=== PATIENT | female | born 1955 | race Caucasian/White ===

== ENCOUNTER 2019-04-09 09:52 | Inpatient (IN) | payer OTHER ==
--- NOTE | 2019-04-09 10:51 | PDOC ---
History of Present Illness - General Chief Complaint: SIRS, Suspected/Possible Stated Complaint: PCP SENT Time Seen by Provider: 04/09/19 10:41 History Source: Patient Exam Limitations: No Limitations - History of Present Illness Initial Comments: 04/09/19 10:46 63 yo female pmh scarlet fever and vaginal herpes presents for 1 week body aches, MACIEL, F/C, cough with yellow fl, SOB with talking , worse lying flat, decreased urine output even though drinking water. took husbands lasix 20 pm 102.5 t max Prescribed z pack and prednisone. Took 1 dose medrol pack, no antibiotics taken yet son had similar symptoms 1 week ago, no recent travel tachy, bilateral crackles, 101.9 temp in the ED Past History - Past Medical History Allergies/Adverse Reactions: Allergies Allergy/AdvReac Type Severity Reaction Status Date / Time No Known Allergies Allergy Verified 04/09/19 09:59 COPD: No Other medical history: herpies - Surgical History Appendectomy: Yes - Suicide/Smoking/Psychosocial Hx Smoking History: Former smoker Have you smoked in the past 12 months: No Information on smoking cessation initiated: No Hx Alcohol Use: No Drug/Substance Use Hx: No *Physical Exam - Vital Signs Last Vital Signs Temp Pulse Resp BP Pulse Ox 101.9 F H 125 H 25 H 147/77 97 04/09/19 09:59 04/09/19 09:59 04/09/19 09:59 04/09/19 09:59 04/09/19 09:59 ED Treatment Course - LABORATORY CBC & Chemistry Diagram: 04/09/19 11:00 04/09/19 11:00 *DC/Admit/Observation/Transfer Diagnosis at time of Disposition: Community acquired bacterial pneumonia - Discharge Dispostion Condition at time of disposition: Stable Decision to Admit order: Yes - Referrals Referrals: Jenny Castaneda MD [Primary Care Provider] - - Patient Instructions - Post Discharge Activity
[2019-04-09] MEDS ORDERED: ACETAMINOPHEN 1000 MG/100 ML VIAL (NON FORMULARY) IVPB ONE (11:32)
[2019-04-09 11:35] LABS: HEMATOCRIT 29.7 % (32.4-45.2); HEMOGLOBIN 10.2 GM/dL (10.7-15.3); LYMPH % 3.3 % (8-40); MCH 32.1 pg (25.7-33.7); MCHC 34.5 g/dl (32.0-36.0); MEAN CELL VOLUME 93.1 fl (80-96); MONO % 1.9 % (3.8-10.2); NEUT % 94.8 % (42.8-82.8); RBC 3.19 M/mm3 (3.60-5.2); RDW 12.4 % (11.6-15.6); WHITE BLOOD COUNT 11.8 K/mm3 (4.0-10.0)
[2019-04-09] MEDS ORDERED: SODIUM CHLORIDE 1,000 ML IV STA (11:37)
[2019-04-09 11:48] LABS: PLATELET COUNT 330 K/MM3 (134-434)
[2019-04-09 11:55] LABS: EPI CELLS 3.3 /HPF (0-5/HPF); HYALINE CASTS 4 /lpf (0-8); URINE APPEARANCE CLEAR; URINE BACTERIA 9.5 /hpf (NEGATIVE); URINE BILIRUBIN NEGATIVE (NEGATIVE); URINE COLOR YELLOW; URINE GLUCOSE (UA) NEGATIVE (NEGATIVE); URINE KETONE TRACE (NEGATIVE); URINE LEUK ESTERASE NEGATIVE (NEGATIVE); URINE NITRITE NEGATIVE (NEGATIVE); URINE PROTEIN 2+ (NEGATIVE); URINE RBC 6 /hpf (0-4); URINE WBC 2 /hpf (0-5)
[2019-04-09 11:58] LABS: ALBUMIN 2.7 g/dl (3.4-5.0); BILIRUBIN,TOTAL 0.2 mg/dL (0.2-1); BLOOD UREA NITROGEN 10.2 mg/dL (7-18); CALCIUM 9.5 mg/dL (8.5-10.1); CREATININE 0.6 mg/dL (0.55-1.3); POTASSIUM 3.9 mmol/L (3.5-5.1); TOT PROT 6.2 g/dl (6.4-8.2)
[2019-04-09 12:00] LABS: INR 1.19 (0.83-1.09); PROTHROMBIN TIME (PATIENT) 14.1 SEC (9.7-13.0)
[2019-04-09 12:03] LABS: ACTIVATED PTT 31.5 SECONDS (25.2-36.5)
[2019-04-09 12:34] LABS: N-TERMINAL BNP 1753.2 pg/ml (5-125)
[2019-04-09] MEDS ORDERED: CEFTRIAXONE 1 GM in DEXTROSE 5%-WATER - 100 ML IVPB ONE (12:55)
[2019-04-09] MEDS ORDERED: AZITHROMYCIN IVPB 500 MG in DEXTROSE 5%-WATER - 250 ML IVPB ONE (12:56)
[2019-04-09] MEDS ORDERED: CEFTRIAXONE 1 GM/50 ML BAG ONE (13:08)
[2019-04-09] MEDS ORDERED: AZITHROMYCIN IVPB 500 MG/250 ML BAG IVPB ONE (13:08)
--- NOTE | 2019-04-09 13:10 | PDOC ---
Documentation entered by Jenny Jay SCRIBE, acting as scribe for Patel Rodgers MD. Patel Rodgers MD: This documentation has been prepared by the Misty justice Brenda, SCRIBE, under my direction and personally reviewed by me in its entirety. I confirm that the documentation accurately reflects all work, treatment, procedures, and medical decision making performed by me. Attending Attestation - Resident Resident Name: Shawn Azul - ED Attending Attestation I have performed the following: I have examined & evaluated the patient, The case was reviewed & discussed with the resident, I agree w/resident's findings & plan, Exceptions are as noted - HPI HPI: 04/09/19 12:32 The patient is a 63 year old female, with a significant PMH of Scarlet fever, vagincal herpies and an unknown murmor, who presents to the emergency department with 1 week of body aches,headaches, chest congestion, a productive cough of white phlegm accompanied by chills, SOB and orthopnea. She also endorses experiencing fevers at about 101.5 F and this morning at 102.5 f. The patient reported seeing her PCP on for her symptoms,but was told to wait it off, due to son experiencing similar symptoms, but prescribed her Z- pack. She also reports recent decreased urine production, for which she took husbands lasix, which helped for 1 day. The patient also endorses recent loose stools. The patient denies chest pain and dizziness. Denies nausea, vomiting, and constipation. Denies any urinary symptoms. 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 PCP: Jenny Castaneda - Physicial Exam PE: 04/09/19 12:33 GENERAL: + Mild tachypnea. The patient is awake, alert, and fully oriented, Nontoxic - in no acute distress. HEAD: Normocephalic, atraumatic. EYES: extraocular movements intact, sclera anicteric, conjunctiva clear. ENT: Normal voice, Moist mucous membranes. NECK: Normal range of motion, supple without lymphadenopathy, JVD, or masses. LUNGS: + basilar rales, worse in L base HEART: +Tachycardic. Regular rhythm, normal S1 and S2 without murmur, rub or gallop. ABDOMEN: Soft, nontender, No guarding, no rebound. No masses. EXTREMITIES: Normal range of motion, no edema. neg homans, no calf tenderness NEUROLOGICAL: No facial asymmetry, Normal speech, normal gait. moving all 4 ext spontaneously and symmetrically PSYCH: Normal mood, normal affect. SKIN: Warm, Dry, normal turgor, no rashes or lesions noted. - Medical Decision Making 04/09/19 12:12 63y F no significant pmhx presnts with 1 week of fever/chills, cough, chgest congestion. cough producive of yellowish without hemopytsis. patient notes that she started off with fever, body aches approximate 6 days ago with onset of cough about 5 days ago - patient note poor appetite, malaise, dyspnea on exertion. the patient denies any leg swelling, abdominal pain, vomiting. no recent travel. she has had a few friends that had a mild cough. Patient denies smoking or recreational drug use pmd: dr. castaneda Suspect possible pneumonia we'll obtain blood work, chest x-ray, sepsis or set obtained 04/09/19 13:08 Chest x-ray noted for left basal infiltrate We'll treat the patient with ceftriaxone and azithromycin for CAP will adimt for inpt tx of pna per PSI Port score Heart Score/ECG Review - ECG Impressions Comment:: 04/09/19 13:08 Twelve-lead EKG was performed and reviewed by me. There is normal sinus rhythm with a rate of [address] wave changes suggestive of acute ischemia imp: sinus tachycarda
[2019-04-09 13:42] LABS: ANISOCYTOSIS 0; MACROCYTOSIS 1+; OVALOCYTE 1+; PLATELET ESTIMATE NORMAL
--- NOTE | 2019-04-09 13:54 | HP ---
CHIEF COMPLAINT:cough, SOB PCP:Dr. Castaneda HISTORY OF PRESENT ILLNESS: Patient is a 63 year old female with past medical history of heart murmur and vaginal herpes, presented to the ED due to 1 week history of cough and worsening SOB. Patient reported she experienced nonproductive cough, body malaise, subjective fevers and headache that started 1 week ago. No medications taken, no consult was done. Four days ago, she started experiencing shortness of breath, worsened with exertion, and had poor oral intake. She also started to sleep with head elevated as lying flat makes her cough and dyspneic. Two days ago, she followed up with her PCP, and she was prescribed Azithromycin and Prednisone taper which she started taking yesterday. This morning, patient woke up feeling worse, with temp at 102F, and feeling short of breath. She called her PCP and recommended she come to the ED. Of note, patient also reports decreased urine output for the past 2 days. She reports bloating and incomplete bladder emptying sensation, but denies dysuria or hematuria. She took Lasix 20mg from her , and reported good urine output afterwards, but today, urine output is decreased again. ER course was notable for: (1)CXR: LLL infiltrates. RUL infiltrate vs atelectasis (2)IV Azithromycin and IV Ceftriaxone x1, IV NS x1 (3)WBC 11.8, Na 128, BNP 1753 Recent Travel:denies PAST MEDICAL HISTORY: unknown heart murmur vaginal herpes PAST SURGICAL HISTORY: appendectomy Social History: Smoking:denies Alcohol:1 glass of wine/day Drugs: denies Family History: Mother, aunt - colon cancer Allergies No Known Allergies Allergy (Verified 04/09/19 09:59) HOME MEDICATIONS: REVIEW OF SYSTEMS CONSTITUTIONAL: fever, generalized weakness, malaise, loss of appetite Absent: chills, diaphoresis, weight change HEENT: Absent: rhinorrhea, nasal congestion, throat pain, throat swelling, difficulty swallowing, mouth swelling, ear pain, eye pain, visual changes CARDIOVASCULAR: Absent: chest pain, syncope, palpitations, irregular heart rate, lightheadedness , peripheral edema RESPIRATORY: cough, shortness of breath Absent: dyspnea with exertion, orthopnea, wheezing, stridor, hemoptysis GASTROINTESTINAL: Absent: abdominal pain, abdominal distension, nausea, vomiting, diarrhea, constipation, melena, hematochezia GENITOURINARY: incomplete bladder emptying Absent: dysuria, frequency, urgency, hesitancy, hematuria, flank pain, genital pain MUSCULOSKELETAL: Absent: myalgia, arthralgia, joint swelling, back pain, neck pain SKIN: Absent: rash, itching, pallor HEMATOLOGIC/IMMUNOLOGIC: Absent: easy bleeding, easy bruising, lymphadenopathy, frequent infections ENDOCRINE: Absent: unexplained weight gain, unexplained weight loss, heat intolerance, cold intolerance NEUROLOGIC: Absent: headache, focal weakness or paresthesias, dizziness, unsteady gait, seizure, mental status changes, bladder or bowel incontinence PSYCHIATRIC: Absent: anxiety, depression, suicidal or homicidal ideation, hallucinations. PHYSICAL EXAMINATION Vital Signs - 24 hr 04/09/19 09:59 Temperature 101.9 F H Pulse Rate 125 H Respiratory 25 H Rate Blood Pressure 147/77 O2 Sat by Pulse 97 Oximetry (%) GENERAL: Awake, alert, and fully oriented, in no acute distress. EYES: PERRLa, EOMI, sclera anicteric, conjunctiva clear. EARS, NOSE, THROAT: Dry mucous membranes. NECK: Normal range of motion, supple. LUNGS: + fine crackles on left base HEART: Regular rate and rhythm, normal S1 and S2, +holosystolic murmur RUSB/LUSB ABDOMEN: Soft, nontender, not distended, normoactive bowel sounds. MUSCULOSKELETAL: Normal range of motion at all joints. UPPER EXTREMITIES: 2+ pulses, warm, well-perfused. No peripheral edema. LOWER EXTREMITIES: 2+ pulses, warm, well-perfused. No peripheral edema. NEUROLOGICAL: Cranial nerves II-XII intact. Normal speech. Normal gait. PSYCHIATRIC: Cooperative. Good eye contact. Appropriate mood and affect. SKIN: Warm, dry, normal turgor, no rashes or lesions noted. Laboratory Results - last 24 hr 04/09/19 04/09/19 04/09/19 11:00 11:00 11:00 WBC 11.8 H RBC 3.19 L Hgb 10.2 L Hct 29.7 L MCV 93.1 MCH 32.1 MCHC 34.5 RDW 12.4 Plt Count 330 MPV 8.0 Absolute Neuts (auto) 11.2 H Neutrophils % 94.8 H Lymphocytes % 3.3 L Monocytes % 1.9 L Eosinophils % 0.0 Basophils % 0.0 Nucleated RBC % 0 PT with INR 14.10 H INR 1.19 H PTT (Actin FS) 31.5 Sodium 128 L Potassium 3.9 Chloride 94 L Carbon Dioxide 27 Anion Gap 7 L BUN 10.2 Creatinine 0.6 Est GFR (CKD-EPI)AfAm 114.02 Est GFR (CKD-EPI)NonAf 98.38 Random Glucose 115 H Lactic Acid Calcium 9.5 Total Bilirubin 0.2 AST 40 H ALT 49 Alkaline Phosphatase 112 Troponin I B-Natriuretic Peptide Total Protein 6.2 L Albumin 2.7 L Urine Color Urine Appearance Urine pH Ur Specific [place] Urine Protein Urine Glucose (UA) Urine Ketones Urine Blood Urine Nitrite Urine Bilirubin Urine Urobilinogen Ur Leukocyte Esterase Urine WBC (Auto) Urine RBC (Auto) Urine Casts (Auto) U Epithel Cells (Auto) Urine Bacteria (Auto) 04/09/19 04/09/19 04/09/19 11:00 11:00 11:20 WBC RBC Hgb Hct MCV MCH MCHC RDW Plt Count MPV Absolute Neuts (auto) Neutrophils % Lymphocytes % Monocytes % Eosinophils % Basophils % Nucleated RBC % PT with INR INR PTT (Actin FS) Sodium Potassium Chloride Carbon Dioxide Anion Gap BUN Creatinine Est GFR (CKD-EPI)AfAm Est GFR (CKD-EPI)NonAf Random Glucose Lactic Acid 0.9 Calcium Total Bilirubin AST ALT Alkaline Phosphatase Troponin I < 0.02 B-Natriuretic Peptide 1753.2 H Total Protein Albumin Urine Color Yellow Urine Appearance Clear Urine pH 7.0 Ur Specific [place] 1.021 Urine Protein 2+ H Urine Glucose (UA) Negative Urine Ketones Trace H Urine Blood Negative Urine Nitrite Negative Urine Bilirubin Negative Urine Urobilinogen 1.0 Ur Leukocyte Esterase Negative Urine WBC (Auto) 2 Urine RBC (Auto) 6 Urine Casts (Auto) 4 U Epithel Cells (Auto) 3.3 Urine Bacteria (Auto) 9.5 ASSESSMENT/PLAN: Patient is a 63 year old female with past medical history of heart murmur and vaginal herpes, presented to the ED due to 1 week history of cough and worsening SOB. #Sepsis 2/2 Community Acquired Pneumonia -Leukocytosis, fever, tachycardia -CXR: LLL infiltrate, ?RUL infiltrate -Urine legionella -Continue Iv Ceftriaxone 1000mg daily and IV Azithromycin 500mg daily -IV NS @100cc/hr -Follow up cultures #Hyponatremia -likely 2/2 poor oral intake vs infection -Urine Na, crea, osm -Will replete with IV NS -Monitor Na level #Decreased urine output -Will order bladder scan post void -likely 2/2 poor oral intake #?heart failure -Will order echo -BNP 1700 -clinical picture more consistent with PNA than CHF #FEN -IV NS @100cc/hr -Routine bmp monitoring -Sodium restricted diet #Prophylaxis -Lovenox 40mg sq daily #Disposition -full code -admit to med surg Visit type - Emergency Visit Emergency Visit: Yes ED Registration Date: 04/09/19 Care time: The patient presented to the Emergency Department on the above date and was hospitalized for further evaluation of their emergent condition. - New Patient This patient is new to me today: Yes Date on this admission: 04/09/19 - Critical Care Critical Care patient: No ATTENDING PHYSICIAN STATEMENT I saw and evaluated the patient. I reviewed the resident's note and discussed the case with the resident. I agree with the resident's findings and plan as documented. SUBJECTIVE: OBJECTIVE: ASSESSMENT AND PLAN:
[2019-04-09] MEDS ORDERED: SODIUM CHLORIDE 1,000 ML IV SCH (14:45)
--- NOTE | 2019-04-09 14:50 | PN ---
Teaching Attending Note Name of Resident: Robyn Ramirez ATTENDING PHYSICIAN STATEMENT I saw and evaluated the patient. I reviewed the resident's note and discussed the case with the resident. I agree with the resident's findings and plan as documented. SUBJECTIVE: CC: fever, cough, and SOB. HPI: 63 y/o lady with h/o heart murmur,anemia, and genital herpes who presented with fever, cough, and SOB x 1 week. patient was doing well until she started with malaise, SOB, cough ( occasionally with yellow sputum production). diarrhea developed on second day of sx onset, after taking a natural remedies for constipation and has been having 3-4 water BMs daily. she feels bloated. she reports decreased urine output. Tokk a lsix form her yesterday yesterday with transient increase in her urine. she denies hematuria. she reports increased thirst and slightly increased water intake in past week. poor food intake. denies any heart history but knows of a murmur since childhood. Had previous echos in past and was told "the murmur is minimal". 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 Son was sick with fever last week for few days then it resolved. no other sick contact. she saw her PCp on and was prescribed Zpack and prednisone. she took those yesterday. No change in status though. this am , she felt worse nad presented to ER. send sputum cx In ER, she was given IVF,, CTx and Azithro. blood cx was sent. she feels better now and SOB is slightly better. OBJECTIVE: NAD. HEENT: dry MM, + JVD, no facial droop. erythematous oropharynx, no facial droop , round pupils, reactive to light, unicteric sclera. EOMI CV: RRR, 2/6 Sm at Base, and LLSB, with no radiation to carotids . B/l JVD Lungs: L mid lung and L base crackles. R base crackles Ext: no vivek or erythema, no fungal infection in toe webs. Abd:Soft, Nd,, TTP in epigastric area and RUQ. No rebound tenderness. No hepartosplenomegaly. blader is not percussed or palpated. Cxray image and report reviewed. EKG: sinus tach, no ST or TW changes. QTC 400 ASSESSMENT AND PLAN: 63 y/o lady with h/o heart murmur,anemia, and genital herpes who presented with fever, cough, and SOB x 1 week. she was found ot be septic 1- Sepsis: due to b/l community acquired PNA. R/o legionella with bilateral infiltrates, hyponatremia and tenderness over liver area. Despite JVds, and elevated BNP, patient looks volume depleted. i doubt heart failure. - cont ceftriaxone and Azithro. Qtc 400 - check legionella Urine Ag. - follow urine cx - give IVF carefully and monitor resp status. if signs of volume overload can diurese - check Echo - order sputum cx 2- Hyponatremia: suspect form volume depletion and poor po intake. r/o legionella infection. doubt CHF. No previous labsin system - check urine Na/cr/Osm, and Serum Osm. - IVF NS for now - repeat Na this evening 3- Normocytic anemia: reports being anemic in past, but no specific treatment was provided. No GI or bleed - check iron studies, B12, folate 4- Elevated BNP: with JVd on exam. doubt CHF. - check echo. monitor closely on IVF 5- Reported decreased urine output. probably due to volume depletion.No signs of UTI - check bladder scan. R/o retention - I&O 6- DVT px. lovenox
--- NOTE | 2019-04-09 16:09 | EKG ---
Test Reason : Blood Pressure : / mmHG Vent. Rate : 118 BPM Atrial Rate : 118 BPM P-R Int : 154 ms QRS Dur : 068 ms QT Int : 286 ms P-R-T Axes : 046 037 037 degrees QTc Int : 400 ms SINUS TACHYCARDIA POSSIBLE LEFT ATRIAL ENLARGEMENT BORDERLINE ECG NO PREVIOUS ECGS AVAILABLE Confirmed by PAULA MELGAR, GIUSEPPE ([id number]) on 04/09/2019 4:09:05 PM Referred By: Confirmed By:GIUSEPPE MITCHELL MD
[2019-04-09 16:56] VITALS: BMI 22.4
[2019-04-09 19:50] LABS: BLOOD UREA NITROGEN 10.4 mg/dL (7-18); CALCIUM 9.3 mg/dL (8.5-10.1); CREATININE 0.7 mg/dL (0.55-1.3); POTASSIUM 4.4 mmol/L (3.5-5.1)
[2019-04-10] MEDS ORDERED: ALBUTEROL SO4 2.5/IPRATROPIUM 0.5 INH SOL 3 ML VIAL.NEB. NEB ONE (00:04)
[2019-04-10] MEDS ORDERED: guaiFENesin 200 MG/10 ML 10 ML UNIT-DOSE CUPS PO PRN ×2 (00:05→07:33)
[2019-04-10] MEDS ORDERED: BENZOCAINE/MENTH/CETYLPYRD CL 1 EACH LOZENGE MM PRN ×2 (01:44→07:33)
[2019-04-10] MEDS ORDERED: ACETAMINOPHEN 1000 MG/100 ML VIAL (NON FORMULARY) IVPB ONE ×2 (01:46→13:29)
--- NOTE | 2019-04-10 01:56 | PN ---
Progress Note (short form) - Note Progress Note: Paged by nurse that patient was febrile at 103F. Patient reported coughing which keeps her awake. Patient noted to be tachycardic at 120s. General: awake, alert, cotinuously having nonproductive cough Heart: Tachycardic Lungs: crackles left lung base Repeat BNP and bmp EKG showed sinus tachycardia IVF discontinued Repeat blood culture
[2019-04-10 08:30] LABS: BASO % 0.2 % (0-2.0); EOS % 0.3 % (0-4.5); HEMATOCRIT 29.9 % (32.4-45.2); HEMOGLOBIN 10.2 GM/dL (10.7-15.3); LYMPH % 9.9 % (8-40); MCH 32.3 pg (25.7-33.7); MCHC 34.2 g/dl (32.0-36.0); MEAN CELL VOLUME 94.4 fl (80-96); MEAN PLT VOLUME 7.3 fl (7.5-11.1); MONO % 4.6 % (3.8-10.2); RBC 3.16 M/mm3 (3.60-5.2); RDW 12.3 % (11.6-15.6); WHITE BLOOD COUNT 7.5 K/mm3 (4.0-10.0)
[2019-04-10 08:48] LABS: PLATELET COUNT 329 K/MM3 (134-434)
[2019-04-10 08:56] LABS: ALBUMIN 2.5 g/dl (3.4-5.0); BILIRUBIN,TOTAL 0.2 mg/dL (0.2-1); BLOOD UREA NITROGEN 8.9 mg/dL (7-18); CALCIUM 9.1 mg/dL (8.5-10.1); CREATININE 0.6 mg/dL (0.55-1.3); MAGNESIUM 2.2 mg/dL (1.8-2.4); POTASSIUM 3.7 mmol/L (3.5-5.1); TOT PROT 5.9 g/dl (6.4-8.2)
[2019-04-10] MEDS ORDERED: cefTRIAXone SODIUM 1 GM VIAL ONE (09:49)
[2019-04-10] MEDS ORDERED: DEXTROSE 5%-WATER - 50 ML IVPB ONE (09:49)
[2019-04-10] MEDS: AZITHROMYCIN IVPB 500 MG/250 ML BAG IVPB SCH (09:59)
[2019-04-10] MEDS: ENOXAPARIN NA (PORCINE) 40 MG/0.4 ML DISP.SYRIN SQ SCH (09:59)
[2019-04-10] MEDS ORDERED: CEFTRIAXONE 1 GM in DEXTROSE 5%-WATER - 50 ML IVPB SCH (10:00)
[2019-04-10] MEDS ORDERED: ENOXAPARIN NA (PORCINE) 40 MG/0.4 ML DISP.SYRIN SQ SCH (10:00)
[2019-04-10] MEDS ORDERED: AZITHROMYCIN IVPB 500 MG/250 ML BAG IVPB SCH (10:00)
[2019-04-10] MEDS ORDERED: PT OWN MED DRAWER 7, Y5N ONE (10:42)
--- NOTE | 2019-04-10 11:53 | EKG ---
Test Reason : Blood Pressure : / mmHG Vent. Rate : 102 BPM Atrial Rate : 102 BPM P-R Int : 160 ms QRS Dur : 074 ms QT Int : 308 ms P-R-T Axes : 049 026 053 degrees QTc Int : 401 ms SINUS TACHYCARDIA WITH OCCASIONAL PREMATURE VENTRICULAR COMPLEXES OTHERWISE NORMAL ECG WHEN COMPARED WITH ECG OF 09-APR-2019 10:26, PREMATURE VENTRICULAR COMPLEXES ARE NOW PRESENT Confirmed by PAULA MELGAR, GIUSEPPE ([id number]) on 04/10/2019 11:52:59 AM Referred By: Confirmed By:GIUSEPPE MITCHELL MD
--- NOTE | 2019-04-10 12:43 | PN ---
Progress Note (short form) - Note Progress Note: Subjective: Had fever last night. feels SOB still, cough is bothering her , but did not change from yesterday. No CP . Objective: Vital Signs: Last Vital Signs Temp Pulse Resp BP Pulse Ox 98.8 F 92 H 20 111/71 95 04/10/19 11:15 04/10/19 11:15 04/10/19 11:15 04/10/19 11:15 04/10/19 09:00 Laboratory Results - last 24 hr 04/09/19 04/09/19 04/09/19 11:00 11:20 15:46 WBC RBC Hgb Hct MCV MCH MCHC RDW Plt Count MPV Absolute Neuts (auto) Neutrophils % Neutrophils % (Manual) 87.0 H Band Neutrophils % 5.0 Lymphocytes % Lymphocytes % (Manual) 4.0 L Monocytes % Monocytes % (Manual) 3 L Eosinophils % Eosinophils % (Manual) 0.0 Basophils % Basophils % (Manual) 0.0 Myelocytes % (Man) 0 Promyelocytes % (Man) 0 Blast Cells % (Manual) 0 Nucleated RBC % Metamyelocytes 0 Hypochromia 0 Platelet Estimate Normal Polychromasia 0 Poikilocytosis 0 Anisocytosis 0 Microcytosis 0 Macrocytosis 1+ Ovalocytes 1+ Sodium Potassium Chloride Carbon Dioxide Anion Gap BUN Creatinine Est GFR (CKD-EPI)AfAm Est GFR (CKD-EPI)NonAf Random Glucose Serum Osmolality Lactic Acid 1.2 Calcium Phosphorus Magnesium Total Bilirubin AST ALT Alkaline Phosphatase B-Natriuretic Peptide Total Protein Albumin TSH Urine Osmolality Ur Random Creatinine 37.0 Ur Random Sodium 04/09/19 04/09/19 04/09/19 15:46 16:35 16:35 WBC RBC Hgb Hct MCV MCH MCHC RDW Plt Count MPV Absolute Neuts (auto) Neutrophils % Neutrophils % (Manual) Band Neutrophils % Lymphocytes % Lymphocytes % (Manual) Monocytes % Monocytes % (Manual) Eosinophils % Eosinophils % (Manual) Basophils % Basophils % (Manual) Myelocytes % (Man) Promyelocytes % (Man) Blast Cells % (Manual) Nucleated RBC % Metamyelocytes Hypochromia Platelet Estimate Polychromasia Poikilocytosis Anisocytosis Microcytosis Macrocytosis Ovalocytes Sodium Potassium Chloride Carbon Dioxide Anion Gap BUN Creatinine Est GFR (CKD-EPI)AfAm Est GFR (CKD-EPI)NonAf Random Glucose Serum Osmolality 259 L Lactic Acid Calcium Phosphorus Magnesium Total Bilirubin AST ALT Alkaline Phosphatase B-Natriuretic Peptide Total Protein Albumin TSH Urine Osmolality 209 L Ur Random Creatinine Ur Random Sodium < 18 L 04/09/19 04/10/19 04/10/19 18:32 01:55 07:31 WBC RBC Hgb Hct MCV MCH MCHC RDW Plt Count MPV Absolute Neuts (auto) Neutrophils % Neutrophils % (Manual) Band Neutrophils % Lymphocytes % Lymphocytes % (Manual) Monocytes % Monocytes % (Manual) Eosinophils % Eosinophils % (Manual) Basophils % Basophils % (Manual) Myelocytes % (Man) Promyelocytes % (Man) Blast Cells % (Manual) Nucleated RBC % Metamyelocytes Hypochromia Platelet Estimate Polychromasia Poikilocytosis Anisocytosis Microcytosis Macrocytosis Ovalocytes Sodium 128 L Cancelled 135 L Potassium 4.4 Cancelled 3.7 Chloride 95 L Cancelled 100 Carbon Dioxide 28 Cancelled 29 Anion Gap 5 L Cancelled 6 L BUN 10.4 Cancelled 8.9 Creatinine 0.7 Cancelled 0.6 Est GFR (CKD-EPI)AfAm 108.38 Cancelled 114.02 Est GFR (CKD-EPI)NonAf 93.51 Cancelled 98.38 Random Glucose 129 H Cancelled 103 Serum Osmolality Lactic Acid Calcium 9.3 Cancelled 9.1 Phosphorus 3.0 Magnesium 2.2 Total Bilirubin 0.2 AST 56 H ALT 49 Alkaline Phosphatase 96 B-Natriuretic Peptide Cancelled Total Protein 5.9 L Albumin 2.5 L TSH 0.61 Urine Osmolality Ur Random Creatinine Ur Random Sodium 04/10/19 07:33 WBC 7.5 RBC 3.16 L Hgb 10.2 L Hct 29.9 L MCV 94.4 MCH 32.3 MCHC 34.2 RDW 12.3 Plt Count 329 MPV 7.3 L Absolute Neuts (auto) 6.4 Neutrophils % 85.0 H Neutrophils % (Manual) Band Neutrophils % Lymphocytes % 9.9 D Lymphocytes % (Manual) Monocytes % 4.6 D Monocytes % (Manual) Eosinophils % 0.3 D Eosinophils % (Manual) Basophils % 0.2 D Basophils % (Manual) Myelocytes % (Man) Promyelocytes % (Man) Blast Cells % (Manual) Nucleated RBC % 0 Metamyelocytes Hypochromia Platelet Estimate Polychromasia Poikilocytosis Anisocytosis Microcytosis Macrocytosis Ovalocytes Sodium Potassium Chloride Carbon Dioxide Anion Gap BUN Creatinine Est GFR (CKD-EPI)AfAm Est GFR (CKD-EPI)NonAf Random Glucose Serum Osmolality Lactic Acid Calcium Phosphorus Magnesium Total Bilirubin AST ALT Alkaline Phosphatase B-Natriuretic Peptide Total Protein Albumin TSH Urine Osmolality Ur Random Creatinine Ur Random Sodium Physical Exam: NAD. HEENT: dry MM, No JVD today. CV: RRR, 2/6 SM at Base, and LLSB, with no radiation to carotids. Lungs: L mid lung and L base crackles.No R sided crackles Ext: no edema or erythema. Abd:Soft, Nd,NT. ASSESSMENT AND PLAN: 63 y/o lady with h/o heart murmur,anemia, and genital herpes who presented with fever, cough, and SOB x 1 week. she was found ot be septic 1- Sepsis: due to b/l community acquired PNA. no improvement in status - r/o legionella, U legionela AG pending - repeat Cxray stat - hold fluids for now and decide after reviewing cxray - cont Azithro and ceftriaxone - follow blood cx - follow sputum cx if able to obtain - cont FiO2 - check Echo - pulm consult - d/w Dr. Hassan: check for Pertusis 2- Hyponatremia: corrected with IVF. this indicates volume depletion as etiology not heart failure 3- Normocytic anemia: reports being anemic in past, but no specific treatment was provided. No GI or bleed - check iron studies, B12, folate. 4- Elevated BNP: doubt heart failure as her Na corrected with IVF. lungs with no increased crackles with fluids. JVD that was present yesterday has resolved. - echo pending - thelma for I& O 5- DVT px. lovenox Tx to tele. Visit type - Emergency Visit Emergency Visit: Yes ED Registration Date: 04/09/19 Care time: The patient presented to the Emergency Department on the above date and was hospitalized for further evaluation of their emergent condition. - New Patient This patient is new to me today: No - Critical Care Critical Care patient: No
--- NOTE | 2019-04-10 13:10 | CON.PULM ---
Consult Consult Specialty:: PULMONARY Referred by:: PMD Reason for Consultation:: PNEUMONIA - History of Present Illness Chief Complaint: PNEUMONIA History of Present Illness: 63 WHITE FEMALE NO SIGNIFICANT SMOKING HISTORY PRESENTS TO ED WITH FEVER/CHILLS/ DRY COUGH/SOB FOR ONE WEEK. SHE STATES THE SYMPTOMS BEGAN 7 DAYS AGO AFTER HAVING A MESSAGE AND A STEAM BATH. THAT EVENING SHE HAD BODY ACHES AND FEVER WITH HEADACHE WHICH PROGRESSED OVER TOME . DOCUMENTED FEVERS UP TO 103. PATIENT VISITED HER PMD 4 DAYS AGO AND WAS TOLD SHE HAD A VIRAL ILLNESS. SHE HAD BLOOD DRAWN BUT WAS NOT GIVEN THE RESULTS, NO RADIOGRAPG WAS DONE AT THAT TIME. TWO DAYS AGO SHE CALLED HER PMD WITH CONTINUED SYMPTOMS AND WAS GIVEN A ZPK WHICH SHE TOOK ALL THE PILLS WITHIN A 12 HOUR PERIOD. SHE CONTINUED TO FEEL POORLY AND DECIDED TO COME TO THE ER. PATIENT HAS SPENT A NUMBER OF YEARS IN [place] AND [facility] AND IS PPD POSITIVE. SHE WAS NEVER TOLD OF ACTIVE TBC INFECTION. 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 Cardio/Vascular: No: AFIB, HTN, Hyperlipdemia Pulmonary: No: Cancer, COPD, O2 Dependent, Pulmonary Fibrosis Gastrointestinal: No: Cancer Hepatobiliary: No: Cirrhosis Renal/: No: Renal Failure Reproductive: Yes: Postmenopausal ...: No Heme/Onc: No: Anemia Infectious Disease: Yes: Other (GENITAL HERPES ) Psych: No: Addictions Musculoskeletal: No: Bursitis Rheumatology: No: Fibromyalgia Endocrine: No: Hypothyroidism - Past Surgical History Past Surgical History: Yes: Appendectomy - Alcohol/Substance Use Hx Alcohol Use: No History of Substance Use: reports: None - Smoking History Smoking history: Former smoker Have you smoked in the past 12 months: No If you are a former smoker, when did you quit?: MANY YEARS AGO - Social History ADL: Independent Place of : Other History of Recent Travel: No Home Medications - Allergies Allergies/Adverse Reactions: Allergies Allergy/AdvReac Type Severity Reaction Status Date / Time No Known Allergies Allergy Verified 04/09/19 09:59 Family Disease History - Family Disease History Family Disease History: CA: Grandparent, Father (COLON CANCER) Review of Systems - Review of Systems Constitutional: reports: Fever, Loss of Appetite Eyes: denies: Blurred Vision HENT: denies: Difficult Swallowing Neck: denies: Decreased ROM Cardiovascular: reports: Shortness of Breath. denies: Chest Pain Respiratory: reports: Cough, Exercise Intolerance, SOB, SOB on Exertion. denies : Hemoptysis, Orthopnea Gastrointestinal: reports: Abdominal Pain (MIDEPIGASTRIC PAIN), Other Genitourinary: reports: No Symptoms Breasts: reports: No Symptoms Reported Musculoskeletal: reports: No Symptoms Integumentary: reports: No Symptoms Neurological: reports: No Symptoms Physical Exam Vital Sings: Vital Signs Temperature 98.8 F 04/10/19 11:15 Pulse Rate 92 H 04/10/19 11:15 Respiratory Rate 20 04/10/19 11:15 Blood Pressure 111/71 04/10/19 11:15 O2 Sat by Pulse Oximetry (%) 95 04/10/19 09:00 Constitutional: Yes: Anxious Eyes: Yes: EOM Intact HENT: Yes: Normocephalic Neck: Yes: Trachea Midline Cardiovascular: Yes: Tachycardia, S1, S2 Respiratory: Yes: Cough, Other (EGOPHONY AND BRONCHIAL BREATH SOUNDS LEFT BASE EXTENDING UP 1/3 LUNG FIELD) Gastrointestinal: Yes: Soft, Tenderness, Epigastrium Renal/: Yes: WNL Musculoskeletal: Yes: Muscle Pain Extremities: Yes: WNL Edema: No Integumentary: Yes: WNL Neurological: Yes: WNL Labs: CBC, BMP 04/10/19 07:33 04/10/19 07:31 Imaging - Results Chest X-ray: Report Reviewed, Image Reviewed EKG: Report Reviewed, Image Reviewed Problem List - Problems (1) Community acquired bacterial pneumonia Code(s): J15.9 - UNSPECIFIED BACTERIAL PNEUMONIA Assessment/Plan CABP WITH HYPOXEMIA/TACHYCARDIA/ELEVATED TEMPS RECENT STEAM BATH CONCERNING FOR LEGIONELLA PANCULTURE/BLOOD, URINE URINE ANTIGENS PERTUSSIS SEROLOGY WITH NASAL SWAB PCR IF POSITIVE WILL NEED CT CHEST NO CONTRAST IN AM SUGGEST ID OPINION CONTINUE ANTIBIOTICS AND SUPPLEMENTAL O2 WITH IV FLUID SUPPORT. THANK YOU FOR THIS CONSULT. Sander NEGRETE MD
[2019-04-10] MEDS ORDERED: CODEINE SO4 30 MG TABLET PO ONE (14:00)
[2019-04-10] MEDS: SODIUM CHLORIDE 1,000 ML IV SCH (14:00)
[2019-04-10] MEDS: guaiFENesin/CODEINE 10 ML UNIT-DOSE CUPS PO PRN ×2 (14:26→21:46)
[2019-04-10] MEDS: ALBUTEROL SO4 2.5/IPRATROPIUM 0.5 INH SOL 3 ML VIAL.NEB. NEB PRN ×2 (16:00→20:30)
[2019-04-10] MEDS ORDERED: ACETAMINOPHEN 1000 MG/100 ML VIAL (NON FORMULARY) IVPB PRN (20:55)
[2019-04-11] MEDS: guaiFENesin/CODEINE 10 ML UNIT-DOSE CUPS PO PRN ×2 (04:37→22:58)
[2019-04-11 07:07] LABS: SERUM IRON SATURATION 5 % (15-55); TOTAL IRON BINDING CAPACITY 190 ug/dL (250-450)
[2019-04-11] MEDS: ALBUTEROL SO4 2.5/IPRATROPIUM 0.5 INH SOL 3 ML VIAL.NEB. NEB PRN (07:30)
--- NOTE | 2019-04-11 08:50 | CON.ID ---
Consult Consult Specialty:: infectious diseases Referred by:: Reason for Consultation:: sob,pneumonia - History of Present Illness Chief Complaint: sob,cough,weakness History of Present Illness: 63 year old female with past medical history of heart murmur and vaginal herpes, admitted due to 1 week history of cough and worsening SOB. Patient reported she experienced nonproductive cough, body malaise, subjective fevers and headache that started 1 week ago. No medications taken, Four days ago, she started experiencing shortness of breath, worsened with exertion, and had poor oral intake. She also started to sleep with head elevated as lying flat makes her cough and dyspneic. Two days ago, she followed up with her PCP, and she was told that she probably had viral fever and was not prescribed anything patient then started feeling bad and was asked to come to the hospital and be admitted which she diid Of note, patient also reports decreased urine output for the past 2 days. She reports bloating and incomplete bladder emptying sensation, but denies dysuria or hematuria. She took Lasix 20mg from her , and reported good urine output afterwards, but today, urine output is decreased again. 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 Cardio/Vascular: No: AFIB, HTN, Hyperlipdemia Pulmonary: No: Cancer, COPD, O2 Dependent, Pulmonary Fibrosis Gastrointestinal: No: Cancer Hepatobiliary: No: Cirrhosis Renal/: No: Renal Failure ...: No Infectious Disease: Yes: Other (GENITAL HERPES ) Psych: No: Addictions Musculoskeletal: No: Bursitis Rheumatology: No: Fibromyalgia Endocrine: No: Hypothyroidism - Past Surgical History Past Surgical History: Yes: Appendectomy - Alcohol/Substance Use Hx Alcohol Use: No History of Substance Use: reports: None - Smoking History Smoking history: Former smoker Have you smoked in the past 12 months: No If you are a former smoker, when did you quit?: MANY YEARS AGO - Social History ADL: Independent History of Recent Travel: No Home Medications - Allergies Allergies/Adverse Reactions: Allergies Allergy/AdvReac Type Severity Reaction Status Date / Time No Known Allergies Allergy Verified 04/09/19 09:59 Family Disease History - Family Disease History Family Disease History: CA: Grandparent, Father (COLON CANCER) Physical Exam Vital Signs: Vital Signs Temperature 99.8 F H 04/11/19 06:57 Pulse Rate 85 04/11/19 06:57 Respiratory Rate 20 04/11/19 06:57 Blood Pressure 118/68 04/11/19 06:57 O2 Sat by Pulse Oximetry (%) 96 04/10/19 21:00 Constitutional: Yes: Calm, Mild Distress Cardiovascular: Yes: Regular Rate and Rhythm Respiratory: Yes: Regular, Poor Air Entry, Other Gastrointestinal: Yes: Normal Bowel Sounds, Soft Musculoskeletal: Yes: WNL Extremities: Yes: Other Integumentary: Yes: WNL Neurological: Yes: Alert, Oriented Psychiatric: Yes: Alert, Oriented Imaging - Results Chest X-ray: Report Reviewed, Image Reviewed Assessment/Plan this patient with multiple medical problems coming to the hospital with sob and cough which is dry patient does have pneumonia but all her symptoms do not match her pneumonia also patient has suddenly low urine output i would extensively work her up with a ct scan and also she mentions she had hepatitis does not know which type also patient mention she never uses drugs but i would work her up from that point of view also please work her up for hiv i am going to change the abx to zosyn ct scan of the chest abd and pelvis should be done rest as per the team
[2019-04-11 08:58] LABS: BASO % 0.5 % (0-2.0); EOS % 3.2 % (0-4.5); HEMATOCRIT 27.5 % (32.4-45.2); HEMOGLOBIN 9.7 GM/dL (10.7-15.3); MCH 32.9 pg (25.7-33.7); MCHC 35.2 g/dl (32.0-36.0); MEAN CELL VOLUME 93.4 fl (80-96); MONO % 8.5 % (3.8-10.2); NEUT % 66.8 % (42.8-82.8); PLATELET COUNT 361 K/MM3 (134-434); RBC 2.94 M/mm3 (3.60-5.2); RDW 12.7 % (11.6-15.6); WHITE BLOOD COUNT 5.9 K/mm3 (4.0-10.0)
[2019-04-11] MEDS ORDERED: PIPERACILLIN/TAZOBACTAM 3.375 GM VIAL IVPB ONE ×2 (09:36→17:01)
[2019-04-11] MEDS ORDERED: DEXTROSE 5%-WATER - 50 ML IVPB ONE ×2 (09:36→17:01)
[2019-04-11] MEDS: ENOXAPARIN NA (PORCINE) 40 MG/0.4 ML DISP.SYRIN SQ SCH (09:43)
[2019-04-11] MEDS: PIPERACILLIN/TAZOB 3.375 GM 3.375 GM in DEXTROSE 5%-WATER - 50 ML IVPB SCH ×2 (09:44→17:17)
[2019-04-11] MEDS: AZITHROMYCIN IVPB 500 MG/250 ML BAG IVPB SCH (09:49)
[2019-04-11] MEDS: ONDANSETRON 4 MG/2 ML VIAL IVPUSH SCH ×3 (10:11→22:22)
[2019-04-11 10:16] LABS: ALBUMIN 2.3 g/dl (3.4-5.0); BILIRUBIN,TOTAL 0.4 mg/dL (0.2-1); BLOOD UREA NITROGEN 5.9 mg/dL (7-18); CALCIUM 8.6 mg/dL (8.5-10.1); CREATININE 0.4 mg/dL (0.55-1.3); POTASSIUM 3.7 mmol/L (3.5-5.1); TOT PROT 5.4 g/dl (6.4-8.2)
--- NOTE | 2019-04-11 10:26 | PN ---
Progress Note (short form) - Note Progress Note: PULMONARY Still with generalized weakness, nonproductive cough and shortness of breath. Fever curve trending down. Vital Signs Period Temp Pulse Resp BP Sys/Irwin Pulse Ox Last 24 Hr 98.0 F-100.7 F 85-102 18-20 99-132/61-75 96 Gen: tachypneic with speaking Herat: RRR Lung: left base rales, no wheezes Abd: soft, nontender Ext: no edema CBC, BMP 04/11/19 07:45 04/11/19 07:45 Active Medications Acetaminophen (Ofirmev Injection -) 1,000 mg IVPB Q6H PRN PRN Reason: HEADACHE Last Admin: 04/10/19 21:46 Dose: 1,000 mg Albuterol/Ipratropium (Duoneb -) 1 amp NEB Q6H PRN PRN Reason: SHORTNESS OF BREATH Last Admin: 04/11/19 07:30 Dose: 1 amp Benzocaine/Menthol (Cepacol Lozenge -) 1 each MM PRN PRN PRN Reason: SORE THROAT Enoxaparin Sodium (Lovenox -) 40 mg SQ DAILY MARCELLA Last Admin: 04/11/19 09:43 Dose: 40 mg Guaifenesin/Codeine Phosphate (Robitussin Ac -) 10 ml PO Q8H PRN PRN Reason: COUGH Last Admin: 04/11/19 04:37 Dose: 10 ml Azithromycin (Zithromax 500mg Ivpb (Pre-Docked)) 500 mg in 250 mls @ 250 mls/ hr IVPB DAILY MARCELLA Last Admin: 04/11/19 09:49 Dose: 250 mls/hr Sodium Chloride (Normal Saline -) 1,000 mls @ 75 mls/hr IV ASDIR MARCELLA Last Admin: 04/10/19 14:00 Dose: 75 mls/hr Piperacillin Sod/Tazobactam (Sod 3.375 gm/ Dextrose) 50 mls @ 100 mls/hr IVPB Q8H-IV MARCELLA; Protocol Last Admin: 04/11/19 09:44 Dose: 100 mls/hr Ondansetron HCl (Zofran Injection) 4 mg IVPUSH Q6H MARCELLA Last Admin: 04/11/19 10:11 Dose: 4 mg A/P Multilobar Pneumonia Sepsis Hyponatremia improving Anemia - continue antibiotics per ID - f/u cultures - IVF - monitor lytes - inhaled bronchodilators - O2 to keep Spo2 >90% - DVT prophylaxis
--- NOTE | 2019-04-11 11:08 | ECHO ---
Name: JOSE WALKER WHITNEY Exam:Adult Echocardiogram Study Date: 04/11/2019 08:02 AM Age: 63 yrs Reason For Study: CHF Height: 66 in Weight: 134 lb BSA: 1.7 m2 MMode/2D Measurements & Calculations IVSd: 1.1 cm Ao root diam: 2.6 cm LVIDd: 4.1 cm LA dimension: 3.6 cm LVIDs: 2.6 cm LVPWd: 0.99 cm EDV(Teich): 75.9 ml LVOT diam: 2.0 cm ESV(Teich): 24.5 ml LAV (MOD-bp): 57.7 ml Doppler Measurements & Calculations MV E max jonathan: 147.0 cm/sec Ao V2 max: 250.6 cm/sec MV A max jonathan: 151.2 cm/sec Ao max P.1 mmHg MV E/A: 0.97 Ao V2 mean: 175.0 cm/sec MV dec time: 0.14 sec Ao mean P.0 mmHg Ao V2 VTI: 48.5 cm JEAN CARLOS(I,D): 1.8 cm2 AI P1/2t: 229.2 msec JEAN CARLOS(V,D): 1.6 cm2 AI max jonathan: 486.2 cm/sec LV V1 max P.9 mmHg AI max P.5 mmHg LV V1 mean P.5 mmHg AI dec slope: 621.1 cm/sec2 LV V1 max: 131.0 cm/sec LV V1 mean: 86.4 cm/sec LV V1 VTI: 27.4 cm MR max jonathan: 586.9 cm/sec SV(LVOT): 85.1 ml MR max P.8 mmHg TR max jonathan: 296.7 cm/sec PA V2 max: 129.0 cm/sec TR max P.4 mmHg PA max P.7 mmHg Med Peak E' Jonathan: 9.4 cm/sec PI Vmax: 257.9 cm/sec Med E/e': 15.7 Lat Peak E' Jonathan: 11.1 cm/sec Lat E/e': 13.2 Procedure A complete two-dimensional transthoracic echocardiogram was performed (2D, M-mode, Doppler and color flow Doppler). The study was technically good with many images being of high quality. Left Ventricle The left ventricle is normal in size. Left ventricular systolic function is normal. Ejection Fraction = 65- 70%. No regional wall motion abnormalities noted. Right Ventricle The right ventricle is normal size. The right ventricular systolic function is normal. Atria The left atrial size is normal. LA volume index is 34 ml/m2. Right atrial size is normal. Mitral Valve There is mild mitral valve thickening. There is moderate mitral regurgitation. Tricuspid Valve The tricuspid valve is normal in structure and function. There is mild to moderate tricuspid regurgit ation. Pulmonary artery systolic pressure is at least 42 mmHg as RA pressure is 3 mmHg. Aortic Valve There is mild aortic sclerosis.;. Mild aortic regurgitation. Pulmonic Valve The pulmonic valve is not well visualized. Great Vessels The aortic root is normal size. Pericardium/Pleura Trivial pericardial effusion not hemodynamically significant. Interpretation Summary The left ventricle is normal in size. Left ventricular systolic function is normal. No regional wall motion abnormalities noted. Ejection Fraction = 65-70%. The right ventricular systolic function is normal. The left atrial size is normal. Right atrial size is normal. There is mild mitral valve thickening. There is moderate mitral regurgitation. There is mild to moderate tricuspid regurgitation. Pulmonary artery systolic pressure is at least 42 mmHg as RA pressure is 3 mmHg There is mild aortic sclerosis.; Mild aortic regurgitation. Trivial pericardial effusion not hemodynamically significant Previous study is not available for comparison Thierry Zimmerman MD 04/11/2019 11:08 AM
--- NOTE | 2019-04-11 14:52 | PN ---
Physical Exam: SUBJECTIVE: Patient seen and examined at the bedside. Pt not in acute distress. Pt endorses to having a 100.6 fever at 8pm yesterday that has since resolved w tylenol. She endorsed to having b/l diaphragmatic pain and neck pain this AM but most likely due to poor sleep habit, and coughing. She has nonproductive cough. OBJECTIVE: Vital Signs Period Temp Pulse Resp BP Sys/Irwin Pulse Ox Last 24 Hr 98.0 F-99.8 F 85-97 18-20 99-118/61-68 96 GENERAL: The patient is awake, alert, and fully oriented, in no acute distress on 3L NC . HEAD: Normal with no signs of trauma. EYES: sclera anicteric, conjunctiva clear. No ptosis. NECK: supple. LUNGS: Left mid lobe and left base slight decreased breath sounds with mild crackles, clear to auscultation bilaterally, no wheezes, no crackles, no accessory muscle use. HEART: Regular rate and rhythm, S1, S2 with 2/6 systolic murmur heard at the base that did not radiate to carotids. ABDOMEN: Soft, nontender, nondistended, normoactive bowel sounds, no guarding, no rebound, no masses. EXTREMITIES: 2+ pulses, warm, well-perfused, no edema. PSYCH: Normal mood, normal affect. SKIN: Warm, dry, no rashes or lesions noted Laboratory Results - last 24 hr 04/10/19 04/11/19 04/11/19 07:20 07:45 07:45 WBC 5.9 RBC 2.94 L Hgb 9.7 L Hct 27.5 L MCV 93.4 MCH 32.9 MCHC 35.2 RDW 12.7 Plt Count 361 MPV 7.0 L Absolute Neuts (auto) 3.9 Neutrophils % 66.8 D Lymphocytes % 21.0 D Monocytes % 8.5 D Eosinophils % 3.2 D Basophils % 0.5 Nucleated RBC % 0 Sodium 135 L Potassium 3.7 Chloride 102 Carbon Dioxide 27 Anion Gap 6 L BUN 5.9 L Creatinine 0.4 L Est GFR (CKD-EPI)AfAm 130.29 Est GFR (CKD-EPI)NonAf 112.42 Random Glucose 96 Calcium 8.6 Iron 10 L TIBC 190 L Iron Saturation 5 L Unsaturated IBC 180 Total Bilirubin 0.4 AST 55 H ALT 58 Alkaline Phosphatase 82 Total Protein 5.4 L Albumin 2.3 L Active Medications Generic Name Dose Route Start Last Admin Trade Name Freq PRN Reason Stop Dose Admin Acetaminophen 1,000 mg 04/10/19 20:55 04/10/19 21:46 Ofirmev Injection - IVPB 1,000 mg Q6H PRN Administration HEADACHE Albuterol/Ipratropium 1 amp 04/10/19 12:53 04/11/19 07:30 Duoneb - NEB 1 amp Q6H PRN Administration SHORTNESS OF BREATH Benzocaine/Menthol 1 each 04/10/19 07:33 Cepacol Lozenge - MM PRN PRN SORE THROAT Enoxaparin Sodium 40 mg 04/10/19 10:00 04/11/19 09:43 Lovenox - SQ 40 mg DAILY MARCELLA Administration Guaifenesin/Codeine Phosphate 10 ml 04/10/19 13:31 04/11/19 04:37 Robitussin Ac - PO 10 ml Q8H PRN Administration COUGH Azithromycin 500 mg in 250 mls @ 250 mls/hr 04/10/19 10:00 04/11/19 09:49 Zithromax 500mg Ivpb (Pre-Docked) IVPB 250 mls/hr DAILY MARCELLA Administration Sodium Chloride 1,000 mls @ 75 mls/hr 04/10/19 13:45 04/10/19 14:00 Normal Saline - IV 75 mls/hr ASDIR MARCELLA Administration Piperacillin Sod/Tazobactam 50 mls @ 100 mls/hr 04/11/19 10:00 04/11/19 09:44 Sod 3.375 gm/ Dextrose IVPB 100 mls/hr Q8H-IV MARCELLA Administration Protocol Ondansetron HCl 4 mg 04/11/19 10:00 04/11/19 10:11 Zofran Injection IVPUSH 4 mg Q6H MARCELLA Administration ASSESSMENT/PLAN: Images: EKG- sinus tachy, w occasional PVC's, normal QTc, normal MS. Echo- mild aortic slcerosis, mild AR, trivial pericardial effusion, EF 65-70%, RV ftn nl, mild thickening MV, moderate MR, mild-mod TR, RV systolic pressure 42. This is a 63 y/o woman with PMH of heart murmur,anemia, ? hepatitis, and genital herpes who presented with fever, cough, and SOB x 1 week. She was found to be septic. #Community acquired PNA b/l/ sepsis - on zosyn per ID, azithro - fluids continued -ordered IgM mycoplasma - HIV ordered - pt endorses traveling to [place] in the past. - pertussis serology awaits. - UA legionella, strep PNA negative - ordered procalcitonin - await results of CT chest Pulm - Dr. Wynn: keep SaO2 >90%, continue inhaled BD's, monitor lytes, continue IVF, F/U Cx's ID: Dr to: PNA not matching clinical picture, do UA tox, zosyn 3.375, recs CT chest, abd, pelvis to find a cause for this picture. Pt endorsed having hx of unkown type of hepatitis. #Group III Pulm HTN - Echo- findings of TR suggests this is the cause of the JVD and pulm HTN (RV systolic pressure >25) - PNA is cause of HTN with some valvular involvement as well via the TR. - o/p PFT's, cardio followup. #Normocytic anemia - continue to monitor as outpatient. No management at this time. FEN: - on fluids - monitor all lytes - on regular diet Prophlyaxis: DVT lovenox 40g SQ. Dispo: stable on non-tele. Visit type - Emergency Visit Emergency Visit: No - New Patient This patient is new to me today: Yes Date on this admission: 04/11/19 - Critical Care Critical Care patient: No - Discharge Referral Referred to [facility] Med [facility] No ATTENDING PHYSICIAN STATEMENT I saw and evaluated the patient. I reviewed the resident's note and discussed the case with the resident. I agree with the resident's findings and plan as documented. SUBJECTIVE: OBJECTIVE: ASSESSMENT AND PLAN:
--- NOTE | 2019-04-11 16:31 | PN ---
Teaching Attending Note Name of Resident: Lisa Ochoa ATTENDING PHYSICIAN STATEMENT I saw and evaluated the patient. I reviewed the resident's note and discussed the case with the resident. I agree with the resident's findings and plan as documented. SUBJECTIVE: No fever or chills. No MACIEL . feels the same, although her breathing is better . vomited earlier OBJECTIVE: NAD. supple neck HEENT: dry MM, JVD b/l CV: RRR, 2/6 SM at Base, and LLSB, with no radiation to carotids. Lungs: L mid lung and L base crackles.No R sided crackles Ext: no edema or erythema. Abd:Soft, Nd,NT. ASSESSMENT AND PLAN: 63 y/o lady with h/o heart murmur,anemia, and genital herpes who presented with fever, cough, and SOB x 1 week. she was found ot be septic 1- Sepsis: due to b/l community acquired PNA. clinically improved - legionella neg . - d/w ID . zosyn - check IV, patient consented - follow blood cx - cont O2 supp -appreciate Pulm help - She might have underlying chronic pulm disease, given the presence of pulm artery HTN - check CT of chest - cont IVF 2- Hyponatremia: due to hypovolemia. cont to monitor 3- Normocytic anemia: reports being anemic in past, but no specific treatment was provided. No GI or bleed - No evidence of iron def on labs. ferritin is an acute phase reactant. will need to be repeated as out pt - further anemia w/u as out pt 4- Elevated BNP:not in heart failure clinically. JVD is likely due to the Mod TR. - echo reviewed..need card and pulm f/u as out pt for MOd MR, TR, and Pulm HTN. 5- Vomiting , is probably due to Abx. Nl abd exam . DVT px. lovenox stale on non tele floor
[2019-04-11] MEDS: SODIUM CHLORIDE 1,000 ML IV SCH (16:51)
[2019-04-12] MEDS ORDERED: DEXTROSE 5%-WATER - 50 ML IVPB ONE ×3 (01:45→17:14)
[2019-04-12] MEDS ORDERED: PIPERACILLIN/TAZOBACTAM 3.375 GM VIAL IVPB ONE ×3 (01:45→17:14)
[2019-04-12] MEDS: PIPERACILLIN/TAZOB 3.375 GM 3.375 GM in DEXTROSE 5%-WATER - 50 ML IVPB SCH ×3 (01:57→17:26)
[2019-04-12] MEDS: ONDANSETRON 4 MG/2 ML VIAL IVPUSH SCH ×2 (04:41→12:24)
[2019-04-12 07:49] LABS: EOS % 5.8 % (0-4.5); HEMATOCRIT 27.9 % (32.4-45.2); HEMOGLOBIN 9.6 GM/dL (10.7-15.3); LYMPH % 36.2 % (8-40); MCH 32.4 pg (25.7-33.7); MCHC 34.4 g/dl (32.0-36.0); MEAN CELL VOLUME 94.2 fl (80-96); MONO % 12.7 % (3.8-10.2); NEUT % 44.3 % (42.8-82.8); PLATELET COUNT 380 K/MM3 (134-434); RBC 2.96 M/mm3 (3.60-5.2); RDW 12.4 % (11.6-15.6); WHITE BLOOD COUNT 3.1 K/mm3 (4.0-10.0)
[2019-04-12 08:25] LABS: ALBUMIN 2.3 g/dl (3.4-5.0); BILIRUBIN,TOTAL 0.3 mg/dL (0.2-1); BLOOD UREA NITROGEN 6.2 mg/dL (7-18); CALCIUM 8.8 mg/dL (8.5-10.1); POTASSIUM 4.1 mmol/L (3.5-5.1); TOT PROT 5.5 g/dl (6.4-8.2)
[2019-04-12 08:43] LABS: CREATININE 0.4 mg/dL (0.55-1.3)
[2019-04-12] MEDS: AZITHROMYCIN IVPB 500 MG/250 ML BAG IVPB SCH (09:48)
[2019-04-12] MEDS: ENOXAPARIN NA (PORCINE) 40 MG/0.4 ML DISP.SYRIN SQ SCH ×2 (09:48→09:51)
[2019-04-12] MEDS: SODIUM CHLORIDE 1,000 ML IV SCH (09:49)
[2019-04-12] MEDS: guaiFENesin/CODEINE 10 ML UNIT-DOSE CUPS PO PRN ×2 (09:50→22:04)
--- NOTE | 2019-04-12 10:01 | PN ---
Progress Note (short form) - Note Progress Note: PULMONARY Feels better today. Less short of breath. +nonproductive cough. No fevers. Vital Signs Period Temp Pulse Resp BP Sys/Irwin Pulse Ox Last 24 Hr 97.8 F-98.6 F 75-88 20-20 119-140/67-77 95 Gen: less tachypneic Herat: RRR Lung: left base rales, no wheezes Abd: soft, nontender Ext: no edema CBC, BMP 04/12/19 06:20 04/12/19 06:20 Active Medications Acetaminophen (Ofirmev Injection -) 1,000 mg IVPB Q6H PRN PRN Reason: HEADACHE Last Admin: 04/10/19 21:46 Dose: 1,000 mg Albuterol/Ipratropium (Duoneb -) 1 amp NEB Q6H PRN PRN Reason: SHORTNESS OF BREATH Last Admin: 04/11/19 07:30 Dose: 1 amp Benzocaine/Menthol (Cepacol Lozenge -) 1 each MM PRN PRN PRN Reason: SORE THROAT Enoxaparin Sodium (Lovenox -) 40 mg SQ DAILY MARCELLA Last Admin: 04/12/19 09:51 Dose: Not Given Guaifenesin/Codeine Phosphate (Robitussin Ac -) 10 ml PO Q8H PRN PRN Reason: COUGH Last Admin: 04/12/19 09:50 Dose: 10 ml Azithromycin (Zithromax 500mg Ivpb (Pre-Docked)) 500 mg in 250 mls @ 250 mls/ hr IVPB DAILY MARCELLA Last Admin: 04/12/19 09:48 Dose: 250 mls/hr Sodium Chloride (Normal Saline -) 1,000 mls @ 75 mls/hr IV ASDIR MARCELLA Last Admin: 04/12/19 09:49 Dose: 75 mls/hr Piperacillin Sod/Tazobactam (Sod 3.375 gm/ Dextrose) 50 mls @ 100 mls/hr IVPB Q8H-IV MARCELLA; Protocol Last Admin: 04/12/19 09:49 Dose: 100 mls/hr Ondansetron HCl (Zofran Injection) 4 mg IVPUSH Q6H MARCELLA Last Admin: 04/12/19 04:41 Dose: 4 mg A/P Multilobar Pneumonia Sepsis Hyponatremia improving Anemia - continue antibiotics per ID - f/u cultures - IVF - monitor lytes - inhaled bronchodilators - O2 to keep Spo2 >90% - encouraged ambulation - DVT prophylaxis
[2019-04-12 11:44] LABS: ANISOCYTOSIS 0; MACROCYTOSIS 0; PLATELET ESTIMATE NORMAL
--- NOTE | 2019-04-12 12:47 | PN ---
Progress Note, Physician History of Present Illness: stable no new issues for imaging studies today - Current Medication List Current Medications: Active Medications Acetaminophen (Ofirmev Injection -) 1,000 mg IVPB Q6H PRN PRN Reason: HEADACHE Last Admin: 04/10/19 21:46 Dose: 1,000 mg Albuterol/Ipratropium (Duoneb -) 1 amp NEB Q6H PRN PRN Reason: SHORTNESS OF BREATH Last Admin: 04/11/19 07:30 Dose: 1 amp Benzocaine/Menthol (Cepacol Lozenge -) 1 each MM PRN PRN PRN Reason: SORE THROAT Enoxaparin Sodium (Lovenox -) 40 mg SQ DAILY MARCELLA Last Admin: 04/12/19 09:51 Dose: Not Given Guaifenesin/Codeine Phosphate (Robitussin Ac -) 10 ml PO Q8H PRN PRN Reason: COUGH Last Admin: 04/12/19 09:50 Dose: 10 ml Azithromycin (Zithromax 500mg Ivpb (Pre-Docked)) 500 mg in 250 mls @ 250 mls/ hr IVPB DAILY MARCELLA Last Admin: 04/12/19 09:48 Dose: 250 mls/hr Sodium Chloride (Normal Saline -) 1,000 mls @ 75 mls/hr IV ASDIR MARCELLA Last Admin: 04/12/19 09:49 Dose: 75 mls/hr Piperacillin Sod/Tazobactam (Sod 3.375 gm/ Dextrose) 50 mls @ 100 mls/hr IVPB Q8H-IV MARCELLA; Protocol Last Admin: 04/12/19 09:49 Dose: 100 mls/hr Ondansetron HCl (Zofran Injection) 4 mg IVPUSH Q6H MARCELLA Last Admin: 04/12/19 12:24 Dose: Not Given - Objective Vital Signs: Vital Signs Temperature 97.8 F 04/12/19 06:22 Pulse Rate 75 04/12/19 06:22 Respiratory Rate 20 04/12/19 06:22 Blood Pressure 119/67 04/12/19 06:22 O2 Sat by Pulse Oximetry (%) 95 04/11/19 21:00 Constitutional: Yes: No Distress, Calm, Thin Cardiovascular: Yes: Regular Rate and Rhythm Gastrointestinal: Yes: Normal Bowel Sounds, Soft Musculoskeletal: Yes: WNL Extremities: Yes: WNL Neurological: Yes: Alert, Oriented Psychiatric: Yes: Alert, Oriented Labs: CBC, BMP 04/12/19 06:20 04/12/19 06:20 INR, PTT INR 1.19 (0.83-1.09) H 04/09/19 11:00 Assessment/Plan plan continue abx await for imaging studies await for other reports rest as per the team
[2019-04-12] MEDS ORDERED: ONDANSETRON 4 MG/2 ML VIAL IVPUSH PRN (15:45)
--- NOTE | 2019-04-12 18:39 | PN ---
Teaching Attending Note Name of Resident: Saeid Parra ATTENDING PHYSICIAN STATEMENT I saw and evaluated the patient. I reviewed the resident's note and discussed the case with the resident. I agree with the resident's findings and plan as documented. SUBJECTIVE: no fever or chills. feels better. No MACIEL , no palpitations. cough is better OBJECTIVE: NAD. supple neck HEENT: JVD b/l CV: RRR, 2/6 SM at Base, and LLSB, with no radiation to carotids. Lungs: b/l crackles half way down Ext: no edema or erythema. Abd:Soft, Nd,NT. NL BS ASSESSMENT AND PLAN: 63 y/o lady with h/o heart murmur,anemia, and genital herpes who presented with fever, cough, and SOB x 1 week. she was found ot be septic 1- Sepsis: due to b/l community acquired PNA. clinically improved - Ct reviewed. - cont zosyn - HIV pending. Mycoplasma igM pending - follow blood cx ( neg to date ) - cont O2 supp as needed ( 94-96% when checked on RA ) - cont IVF - needs repeat CT as out pt in 4-8 weeks - monitor CBC , as neutropenic today 2- Hyponatremia: due to hypovolemia. cont to monitor 3- Normocytic anemia: - No evidence of iron def on labs. ferritin is an acute phase reactant. will need to be repeated as out pt - further anemia w/u as out pt 4- Elevated BNP:not in heart failure clinically. JVD is likely due to the Mod TR. - Need card and pulm f/u as out pt for MOd MR, TR, and Pulm HTN. patient notified DVT px. lovenox dispo : HLOC
--- NOTE | 2019-04-12 18:47 | PN ---
Physical Exam: SUBJECTIVE: Patient seen and examined at bedside. pt cough subsided, satting well of o2 trying to titrate her off o2. Pt remained afebrile overnight. OBJECTIVE: Vital Signs Period Temp Pulse Resp BP Sys/Irwin Pulse Ox Last 24 Hr 97.8 F-98.5 F 75-94 20-20 104-140/66-76 94-95 GENERAL: The patient is awake, alert, and fully oriented, in no acute distress. HEAD: Normal with no signs of trauma. EYES: conjunctiva clear. No ptosis. NECK: supple. LUNGS: Breath sounds normal, clear to auscultation bilaterally, no wheezes, no crackles, no accessory muscle use. HEART: Regular rate and rhythm, S1, S2 without murmur, rub or gallop. ABDOMEN: Soft, nontender, nondistended, normoactive bowel sounds, no guarding, no rebound. EXTREMITIES: 2+ pulses, warm, well-perfused, no edema. NEUROLOGICAL: Cranial nerves II through XII grossly intact. Normal speech, gait not observed. PSYCH: Normal mood, normal affect. SKIN: Warm, dry, no rashes or lesions noted Laboratory Results - last 24 hr 04/12/19 04/12/19 06:20 06:20 WBC 3.1 L RBC 2.96 L Hgb 9.6 L Hct 27.9 L MCV 94.2 MCH 32.4 MCHC 34.4 RDW 12.4 Plt Count 380 MPV 7.0 L Absolute Neuts (auto) 1.4 L Neutrophils % 44.3 D Neutrophils % (Manual) 46.4 Band Neutrophils % 0.0 Lymphocytes % 36.2 D Lymphocytes % (Manual) 35.1 D Monocytes % 12.7 H Monocytes % (Manual) 8 D Eosinophils % 5.8 H D Eosinophils % (Manual) 4.1 D Basophils % 1.0 Basophils % (Manual) 1.0 D Myelocytes % (Man) 1 D Promyelocytes % (Man) 0 Blast Cells % (Manual) 1 H D Nucleated RBC % 0 Metamyelocytes 2 D Hypochromia 0 Platelet Estimate Normal Polychromasia 0 Poikilocytosis 0 Anisocytosis 0 Microcytosis 0 Macrocytosis 0 Sodium 136 Potassium 4.1 Chloride 102 Carbon Dioxide 30 Anion Gap 5 L BUN 6.2 L Creatinine 0.4 L Est GFR (CKD-EPI)AfAm 130.29 Est GFR (CKD-EPI)NonAf 112.42 Random Glucose 89 Calcium 8.8 Total Bilirubin 0.3 AST 58 H ALT 62 H Alkaline Phosphatase 77 Total Protein 5.5 L Albumin 2.3 L Active Medications Generic Name Dose Route Start Last Admin Trade Name Freq PRN Reason Stop Dose Admin Acetaminophen 1,000 mg 04/10/19 20:55 04/10/19 21:46 Ofirmev Injection - IVPB 1,000 mg Q6H PRN Administration HEADACHE Albuterol/Ipratropium 1 amp 04/10/19 12:53 04/11/19 07:30 Duoneb - NEB 1 amp Q6H PRN Administration SHORTNESS OF BREATH Benzocaine/Menthol 1 each 04/10/19 07:33 Cepacol Lozenge - MM PRN PRN SORE THROAT Enoxaparin Sodium 40 mg 04/10/19 10:00 04/12/19 09:51 Lovenox - SQ Not Given DAILY MARCELLA Guaifenesin/Codeine Phosphate 10 ml 04/10/19 13:31 04/12/19 09:50 Robitussin Ac - PO 10 ml Q8H PRN Administration COUGH Azithromycin 500 mg in 250 mls @ 250 mls/hr 04/10/19 10:00 04/12/19 09:48 Zithromax 500mg Ivpb (Pre-Docked) IVPB 250 mls/hr DAILY MARCELLA Administration Sodium Chloride 1,000 mls @ 75 mls/hr 04/10/19 13:45 04/12/19 09:49 Normal Saline - IV 75 mls/hr ASDIR MARCELLA Administration Piperacillin Sod/Tazobactam 50 mls @ 100 mls/hr 04/11/19 10:00 04/12/19 17:26 Sod 3.375 gm/ Dextrose IVPB 100 mls/hr Q8H-IV MARCELLA Administration Protocol Ondansetron HCl 4 mg 04/12/19 15:45 Zofran Injection IVPUSH Q6H PRN NAUSEA ASSESSMENT/PLAN: Images: EKG- sinus tachy, w occasional PVC's, normal QTc, normal NC. Echo- mild aortic slcerosis, mild AR, trivial pericardial effusion, EF 65-70%, RV ftn nl, mild thickening MV, moderate MR, mild-mod TR, RV systolic pressure 42. This is a 63 y/o woman with PMH of heart murmur,anemia, ? hepatitis, and genital herpes who presented with fever, cough, and SOB x 1 week. She was found to be septic. #Community acquired PNA b/l/ sepsis - on zosyn per ID, azithro - fluids continued -ordered IgM mycoplasma - HIV ordered - pt endorses traveling to [place] the [place]. - pertussis serology awaits. - UA legionella, strep PNA negative - ordered procalcitonin - pt maintaining 94-96 saturation on RA but O2 as needed per NC. - CT results showed b/l PNA mostly in LLL, pleural effusions lt >rt. - repeat CT chest needed in 4-8 wks due to possible mass in lung. - follow up cbc bc recent neutropenia. Pulm - Dr. Wynn: keep SaO2 >90%, continue inhaled BD's, monitor lytes, continue IVF, F/U Cx's ID: Dr to: PNA not matching clinical picture, do UA tox, zosyn 3.375, recs CT chest, abd, pelvis to find a cause for this picture. Pt endorsed having hx of unkown type of hepatitis. #Group III Pulm HTN - Echo- findings of TR suggests this is the cause of the JVD and pulm HTN (RV systolic pressure >25) - PNA is cause of HTN with some valvular involvement as well via the TR. - o/p PFT's, cardio followup. #Normocytic anemia - continue to monitor as outpatient. No management at this time. FEN: - on fluids renee d/c'd - monitor all lytes - on regular diet Prophlyaxis: DVT lovenox 40g SQ. Dispo: stable on non-tele. Visit type - Emergency Visit Emergency Visit: No - New Patient This patient is new to me today: No - Critical Care Critical Care patient: No - Discharge Referral Referred to [facility] Med P.C.: No ATTENDING PHYSICIAN STATEMENT I saw and evaluated the patient. I reviewed the resident's note and discussed the case with the resident. I agree with the resident's findings and plan as documented. SUBJECTIVE: OBJECTIVE: ASSESSMENT AND PLAN:
[2019-04-12] MEDS: ALBUTEROL SO4 2.5/IPRATROPIUM 0.5 INH SOL 3 ML VIAL.NEB. NEB PRN (20:35)
[2019-04-12 23:06] LABS: BORDETELLA PERTUSSIS IG-M <1.0 index (0.0-0.9); PERTUSSIS TOXIN IGG 3.88 index (0.00-0.94)
[2019-04-13] MEDS ORDERED: PIPERACILLIN/TAZOBACTAM 3.375 GM VIAL IVPB ONE ×3 (01:59→16:29)
[2019-04-13] MEDS ORDERED: DEXTROSE 5%-WATER - 50 ML IVPB ONE ×3 (02:00→16:29)
[2019-04-13] MEDS: PIPERACILLIN/TAZOB 3.375 GM 3.375 GM in DEXTROSE 5%-WATER - 50 ML IVPB SCH ×3 (02:32→17:16)
[2019-04-13 09:25] LABS: BASO % 0.8 % (0-2.0); HEMATOCRIT 30.5 % (32.4-45.2); HEMOGLOBIN 10.5 GM/dL (10.7-15.3); LYMPH % 34.6 % (8-40); MCH 32.6 pg (25.7-33.7); MCHC 34.3 g/dl (32.0-36.0); MEAN CELL VOLUME 95.1 fl (80-96); MEAN PLT VOLUME 7.1 fl (7.5-11.1); MONO % 9.7 % (3.8-10.2); NEUT % 47.9 % (42.8-82.8); PLATELET COUNT 457 K/MM3 (134-434); RDW 12.6 % (11.6-15.6); WHITE BLOOD COUNT 3.3 K/mm3 (4.0-10.0)
--- NOTE | 2019-04-13 09:32 | PN ---
Teaching Attending Note Name of Resident: Saeid Parra ATTENDING PHYSICIAN STATEMENT I saw and evaluated the patient. I reviewed the resident's note and discussed the case with the resident. I agree with the resident's findings and plan as documented. SUBJECTIVE: Patient is comfortable with no acute distress, feels better OBJECTIVE: Vital Signs Temperature 98.6 F 04/13/19 04:14 Pulse Rate 67 04/13/19 04:14 Respiratory Rate 18 04/13/19 08:57 Blood Pressure 116/64 04/13/19 04:14 O2 Sat by Pulse Oximetry (%) 96 04/13/19 08:57 GENERAL: The patient is awake, alert, and fully oriented, in no acute distress. HEAD: Normal with no signs of trauma. EYES: PERRL, extraocular movements intact, sclera anicteric, conjunctiva clear. . ENT: Ears normal, oropharynx clear without exudates, moist mucous membranes. NECK: Trachea midline, full range of motion, supple. LUNGS: decreased Breath sounds Bl , no wheezes, no crackles, no accessory muscle use. HEART: Regular rate and rhythm, S1, S2 positive, celestino 2/6 , no rub or gallop. ABDOMEN: Soft, nontender, nondistended, normoactive bowel sounds, no guarding, no rebound, no hepatosplenomegaly, no masses. EXTREMITIES: 2+ pulses, warm, well-perfused, no edema. NEUROLOGICAL: Cranial nerves II through XII grossly intact. Normal speech, gait not observed. PSYCH: Normal mood, normal affect. SKIN: Warm, dry, normal turgor, no rashes or lesions noted CBCD WBC 3.1 K/mm3 (4.0-10.0) L 04/12/19 06:20 RBC 2.96 M/mm3 (3.60-5.2) L 04/12/19 06:20 Hgb 9.6 GM/dL (10.7-15.3) L 04/12/19 06:20 Hct 27.9 % (32.4-45.2) L 04/12/19 06:20 MCV 94.2 fl (80-96) 04/12/19 06:20 MCHC 34.4 g/dl (32.0-36.0) 04/12/19 06:20 RDW 12.4 % (11.6-15.6) 04/12/19 06:20 Plt Count 380 K/MM3 (134-434) 04/12/19 06:20 MPV 7.0 fl (7.5-11.1) L 04/12/19 06:20 CMP Sodium 136 mmol/L (136-145) 04/12/19 06:20 Potassium 4.1 mmol/L (3.5-5.1) 04/12/19 06:20 Chloride 102 mmol/L (98-107) 04/12/19 06:20 Carbon Dioxide 30 mmol/L (21-32) 04/12/19 06:20 Anion Gap 5 MMOL/L (8-16) L 04/12/19 06:20 BUN 6.2 mg/dL (7-18) L 04/12/19 06:20 Creatinine 0.4 mg/dL (0.55-1.3) L 04/12/19 06:20 Random Glucose 89 mg/dL (74-106) 04/12/19 06:20 Calcium 8.8 mg/dL (8.5-10.1) 04/12/19 06:20 Total Bilirubin 0.3 mg/dL (0.2-1) 04/12/19 06:20 AST 58 U/L (15-37) H 04/12/19 06:20 ALT 62 U/L (13-61) H 04/12/19 06:20 Alkaline Phosphatase 77 U/L (45-117) 04/12/19 06:20 Total Protein 5.5 g/dl (6.4-8.2) L 04/12/19 06:20 Albumin 2.3 g/dl (3.4-5.0) L 04/12/19 06:20 CARDIAC ENZYMES Troponin I < 0.02 ng/ml (0.00-0.05) 04/09/19 11:00 Current Medications Generic Name Dose Route Start Last Admin Trade Name Freq PRN Reason Stop Dose Admin Acetaminophen 1,000 mg 04/10/19 20:55 04/10/19 21:46 Ofirmev Injection - IVPB 1,000 mg Q6H PRN Administration HEADACHE Albuterol/Ipratropium 1 amp 04/10/19 12:53 04/12/19 20:35 Duoneb - NEB 1 amp Q6H PRN Administration SHORTNESS OF BREATH Benzocaine/Menthol 1 each 04/10/19 07:33 Cepacol Lozenge - MM PRN PRN SORE THROAT Enoxaparin Sodium 40 mg 04/10/19 10:00 04/12/19 09:51 Lovenox - SQ Not Given DAILY MARCELLA Guaifenesin/Codeine Phosphate 10 ml 04/10/19 13:31 04/12/19 22:04 Robitussin Ac - PO 10 ml Q8H PRN Administration COUGH Azithromycin 500 mg in 250 mls @ 250 mls/hr 04/10/19 10:00 04/12/19 09:48 Zithromax 500mg Ivpb (Pre-Docked) IVPB 250 mls/hr DAILY MARCELLA Administration Sodium Chloride 1,000 mls @ 75 mls/hr 04/10/19 13:45 04/12/19 09:49 Normal Saline - IV 75 mls/hr ASDIR MARCELLA Administration Piperacillin Sod/Tazobactam 50 mls @ 100 mls/hr 04/11/19 10:00 04/13/19 02:32 Sod 3.375 gm/ Dextrose IVPB 100 mls/hr Q8H-IV MARCELLA Administration Protocol Ondansetron HCl 4 mg 04/12/19 15:45 Zofran Injection IVPUSH Q6H PRN NAUSEA ASSESSMENT AND PLAN: Patient is a 63yo female with PMHx of heart murmur,anemia, and genital herpes who presented with fever, cough, and SOB x 1 week. she was found to septic # Sepsis IV antibiotic zosyn continue # CAP on Zpsyn continue # Hyponatremia improved post IVF # Normocytic anemia # Elevated BNP :not in heart failure clinically. 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 patient notified DVT px. lovenox
[2019-04-13 09:35] LABS: ALBUMIN 2.4 g/dl (3.4-5.0); BILIRUBIN,TOTAL 0.3 mg/dL (0.2-1); BLOOD UREA NITROGEN 8.1 mg/dL (7-18); CREATININE 0.5 mg/dL (0.55-1.3); POTASSIUM 4.7 mmol/L (3.5-5.1); TOT PROT 5.8 g/dl (6.4-8.2)
[2019-04-13] MEDS: ENOXAPARIN NA (PORCINE) 40 MG/0.4 ML DISP.SYRIN SQ SCH ×2 (09:48→09:53)
[2019-04-13] MEDS: AZITHROMYCIN IVPB 500 MG/250 ML BAG IVPB SCH (09:49)
--- NOTE | 2019-04-13 12:47 | PN ---
Progress Note, Physician History of Present Illness: stable feels much better - Current Medication List Current Medications: Active Medications Acetaminophen (Ofirmev Injection -) 1,000 mg IVPB Q6H PRN PRN Reason: HEADACHE Last Admin: 04/10/19 21:46 Dose: 1,000 mg Albuterol/Ipratropium (Duoneb -) 1 amp NEB Q6H PRN PRN Reason: SHORTNESS OF BREATH Last Admin: 04/12/19 20:35 Dose: 1 amp Benzocaine/Menthol (Cepacol Lozenge -) 1 each MM PRN PRN PRN Reason: SORE THROAT Enoxaparin Sodium (Lovenox -) 40 mg SQ DAILY MARCELLA Last Admin: 04/13/19 09:53 Dose: Not Given Guaifenesin/Codeine Phosphate (Robitussin Ac -) 10 ml PO Q8H PRN PRN Reason: COUGH Last Admin: 04/12/19 22:04 Dose: 10 ml Azithromycin (Zithromax 500mg Ivpb (Pre-Docked)) 500 mg in 250 mls @ 250 mls/ hr IVPB DAILY MARCELLA Last Admin: 04/13/19 09:49 Dose: 250 mls/hr Sodium Chloride (Normal Saline -) 1,000 mls @ 75 mls/hr IV ASDIR MARCELLA Last Admin: 04/12/19 09:49 Dose: 75 mls/hr Piperacillin Sod/Tazobactam (Sod 3.375 gm/ Dextrose) 50 mls @ 100 mls/hr IVPB Q8H-IV MARCELLA; Protocol Last Admin: 04/13/19 09:49 Dose: 100 mls/hr Ondansetron HCl (Zofran Injection) 4 mg IVPUSH Q6H PRN PRN Reason: NAUSEA - Objective Vital Signs: Vital Signs Temperature 98.6 F 04/13/19 10:00 Pulse Rate 83 04/13/19 10:00 Respiratory Rate 18 04/13/19 10:00 Blood Pressure 113/69 04/13/19 10:00 O2 Sat by Pulse Oximetry (%) 96 04/13/19 08:57 Constitutional: Yes: No Distress, Calm, Thin Cardiovascular: Yes: S1, S2 Respiratory: Yes: Regular, CTA Bilaterally Gastrointestinal: Yes: Normal Bowel Sounds, Soft Musculoskeletal: Yes: WNL Extremities: Yes: WNL Neurological: Yes: Alert, Oriented Psychiatric: Yes: Alert, Oriented Labs: CBC, BMP 04/13/19 08:05 04/13/19 08:05 INR, PTT INR 1.19 (0.83-1.09) H 04/09/19 11:00 Assessment/Plan pneumonia fever weakness plan continue current abx ct scan seen and result noted incentive keke rest as per the team
[2019-04-13] MEDS: SODIUM CHLORIDE 1,000 ML IV SCH ×2 (13:45→15:36)
--- NOTE | 2019-04-13 13:51 | PN ---
Physical Exam: SUBJECTIVE: Patient seen and examined at bedside not on any o2. Only acute event was slight coughing that subsided with robitussin. Otherwise vitals stable afebrile throughout night. OBJECTIVE: Vital Signs Period Temp Pulse Resp BP Sys/Irwin Pulse Ox Last 24 Hr 98.1 F-98.6 F 67-94 18-20 113-128/64-78 96-98 GENERAL: The patient is awake, alert, and fully oriented, in no acute distress. HEAD: Normal with no signs of trauma. EYES: sclera anicteric, conjunctiva clear. No ptosis. NECK:supple. LUNGS: Breath sounds slightly decreased on right side clear to auscultation bilaterally, no wheezes, no crackles, no accessory muscle use. HEART: Regular rate and rhythm, S1, S2 without murmur, rub or gallop. ABDOMEN: Soft, nontender, nondistended, normoactive bowel sounds, no guarding, no rebound, no masses. EXTREMITIES: 2+ pulses, warm, well-perfused, no edema. NEUROLOGICAL: Cranial nerves II through XII grossly intact. Normal speech, gait not observed. PSYCH: Normal mood, normal affect. SKIN: Warm, dry, no rashes or lesions noted Laboratory Results - last 24 hr 04/10/19 04/12/19 04/13/19 07:20 06:20 08:05 WBC 3.3 L RBC 3.20 L Hgb 10.5 L Hct 30.5 L MCV 95.1 MCH 32.6 MCHC 34.3 RDW 12.6 Plt Count 457 H D MPV 7.1 L Absolute Neuts (auto) 1.6 Neutrophils % 47.9 Lymphocytes % 34.6 Monocytes % 9.7 Eosinophils % 7.0 H Basophils % 0.8 Nucleated RBC % 0 Sodium Potassium Chloride Carbon Dioxide Anion Gap BUN Creatinine Est GFR (CKD-EPI)AfAm Est GFR (CKD-EPI)NonAf Random Glucose Calcium Total Bilirubin AST ALT Alkaline Phosphatase Total Protein Albumin B. pertussis IgG Ab 3.88 H B. pertussis IgA Ab <1.0 B. pertussis IgM Ab <1.0 HIV 1&2 Ag/Ab, 4th Gen Non reactive 04/13/19 08:05 WBC RBC Hgb Hct MCV MCH MCHC RDW Plt Count MPV Absolute Neuts (auto) Neutrophils % Lymphocytes % Monocytes % Eosinophils % Basophils % Nucleated RBC % Sodium 136 Potassium 4.7 Chloride 102 Carbon Dioxide 31 Anion Gap 4 L BUN 8.1 Creatinine 0.5 L Est GFR (CKD-EPI)AfAm 121.07 Est GFR (CKD-EPI)NonAf 104.46 Random Glucose 86 Calcium 9.0 Total Bilirubin 0.3 AST 70 H ALT 85 H Alkaline Phosphatase 80 Total Protein 5.8 L Albumin 2.4 L B. pertussis IgG Ab B. pertussis IgA Ab B. pertussis IgM Ab HIV 1&2 Ag/Ab, 4th Gen Active Medications Generic Name Dose Route Start Last Admin Trade Name Freq PRN Reason Stop Dose Admin Acetaminophen 1,000 mg 04/10/19 20:55 04/10/19 21:46 Ofirmev Injection - IVPB 1,000 mg Q6H PRN Administration HEADACHE Albuterol/Ipratropium 1 amp 04/10/19 12:53 04/12/19 20:35 Duoneb - NEB 1 amp Q6H PRN Administration SHORTNESS OF BREATH Benzocaine/Menthol 1 each 04/10/19 07:33 Cepacol Lozenge - MM PRN PRN SORE THROAT Enoxaparin Sodium 40 mg 04/10/19 10:00 04/13/19 09:53 Lovenox - SQ Not Given DAILY MARCELLA Azithromycin 500 mg in 250 mls @ 250 mls/hr 04/10/19 10:00 04/13/19 09:49 Zithromax 500mg Ivpb (Pre-Docked) IVPB 250 mls/hr DAILY MARCELLA Administration Sodium Chloride 1,000 mls @ 75 mls/hr 04/10/19 13:45 04/12/19 09:49 Normal Saline - IV 75 mls/hr ASDIR MARCELLA Administration Piperacillin Sod/Tazobactam 50 mls @ 100 mls/hr 04/11/19 10:00 04/13/19 09:49 Sod 3.375 gm/ Dextrose IVPB 100 mls/hr Q8H-IV MARCELLA Administration Protocol Ondansetron HCl 4 mg 04/12/19 15:45 Zofran Injection IVPUSH Q6H PRN NAUSEA ASSESSMENT/PLAN: This is a 63 y/o woman with PMH of heart murmur,anemia, ? hepatitis, and genital herpes who presented with fever, cough, and SOB x 1 week. She was found to be septic. #Community acquired PNA b/l/ sepsis - continue zosyn (day 3) per ID, and azithro (day 4). - fluids continued - IgM mycoplasma pending - HIV negative - incentive spitrometry ordered - Influenza ordered - Stool O&P pending - Blood parasite exam ordered - pt endorses traveling to [place] 2000 and traveling to [place] 1 yr ago. - pertussis serology negative for acute pertussis but positive for vaccination. - UA legionella, strep PNA negative - procalcitonin pending - O2 as needed per NC. - CT results showed b/l PNA mostly in LLL, pleural effusions lt >rt. - repeat CT chest needed in 4-8 wks due to possible mass in lung. - follow up cbc bc recent neutropenia but slight increase to 3.3 from 3.1. Pulm - Dr. Wynn: keep SaO2 >90%, continue inhaled BD's, monitor lytes, continue IVF, F/U Cx's #Group III Pulm HTN - Echo- findings of TR suggests this is the cause of the JVD and pulm HTN (RV systolic pressure >25) - PNA is cause of HTN with some valvular involvement as well via the TR. - o/p PFT's, cardio followup. #Normocytic anemia - continue to monitor as outpatient. No management at this time. FEN: - on fluids renee d/c'd - monitor all lytes - on regular diet Prophlyaxis: DVT lovenox 40g SQ. Dispo: stable on non-tele. Visit type - Emergency Visit Emergency Visit: No - New Patient This patient is new to me today: No - Critical Care Critical Care patient: No - Discharge Referral Referred to [facility] Med P.C.: No ATTENDING PHYSICIAN STATEMENT I saw and evaluated the patient. I reviewed the resident's note and discussed the case with the resident. I agree with the resident's findings and plan as documented. SUBJECTIVE: OBJECTIVE: ASSESSMENT AND PLAN:
--- NOTE | 2019-04-13 15:59 | PN ---
Progress Note (short form) - Note Progress Note: PULMONARY Continues to feel better. +nonproductive cough. No fevers. Vital Signs Period Temp Pulse Resp BP Sys/Irwin Pulse Ox Last 24 Hr 98.2 F-98.6 F 67-83 18-20 113-128/64-80 96-98 Gen: less tachypneic Herat: RRR Lung: left base rales, no wheezes Abd: soft, nontender Ext: no edema CBC, BMP 04/13/19 08:05 04/13/19 08:05 Active Medications Acetaminophen (Ofirmev Injection -) 1,000 mg IVPB Q6H PRN PRN Reason: HEADACHE Last Admin: 04/10/19 21:46 Dose: 1,000 mg Albuterol/Ipratropium (Duoneb -) 1 amp NEB Q6H PRN PRN Reason: SHORTNESS OF BREATH Last Admin: 04/12/19 20:35 Dose: 1 amp Benzocaine/Menthol (Cepacol Lozenge -) 1 each MM PRN PRN PRN Reason: SORE THROAT Enoxaparin Sodium (Lovenox -) 40 mg SQ DAILY MARCELLA Last Admin: 04/13/19 09:53 Dose: Not Given Azithromycin (Zithromax 500mg Ivpb (Pre-Docked)) 500 mg in 250 mls @ 250 mls/ hr IVPB DAILY MARCELLA Last Admin: 04/13/19 09:49 Dose: 250 mls/hr Sodium Chloride (Normal Saline -) 1,000 mls @ 75 mls/hr IV ASDIR MARCELLA Last Admin: 04/13/19 15:36 Dose: 75 mls/hr Piperacillin Sod/Tazobactam (Sod 3.375 gm/ Dextrose) 50 mls @ 100 mls/hr IVPB Q8H-IV MARCELLA; Protocol Last Admin: 04/13/19 09:49 Dose: 100 mls/hr Ondansetron HCl (Zofran Injection) 4 mg IVPUSH Q6H PRN PRN Reason: NAUSEA A/P Multilobar Pneumonia likely Community Acquired Sepsis Hyponatremia improving Anemia - continue antibiotics per ID - f/u cultures - IVF - monitor lytes - inhaled bronchodilators - O2 to keep Spo2 >90% - encouraged ambulation - DVT prophylaxis
[2019-04-14] MEDS ORDERED: DEXTROSE 5%-WATER - 50 ML IVPB ONE ×3 (01:22→14:05)
[2019-04-14] MEDS ORDERED: PIPERACILLIN/TAZOBACTAM 3.375 GM VIAL IVPB ONE ×3 (01:22→14:05)
[2019-04-14] MEDS: PIPERACILLIN/TAZOB 3.375 GM 3.375 GM in DEXTROSE 5%-WATER - 50 ML IVPB SCH ×3 (01:28→17:16)
[2019-04-14] MEDS: SODIUM CHLORIDE 1,000 ML IV SCH ×2 (06:06→13:50)
[2019-04-14 08:12] LABS: BASO % 1.5 % (0-2.0); EOS % 5.8 % (0-4.5); HEMATOCRIT 29.5 % (32.4-45.2); LYMPH % 38.8 % (8-40); MCH 32.2 pg (25.7-33.7); MEAN CELL VOLUME 94.7 fl (80-96); MEAN PLT VOLUME 7.1 fl (7.5-11.1); MONO % 9.5 % (3.8-10.2); NEUT % 44.4 % (42.8-82.8); RBC 3.11 M/mm3 (3.60-5.2); RDW 12.3 % (11.6-15.6); WHITE BLOOD COUNT 3.2 K/mm3 (4.0-10.0)
[2019-04-14 08:14] LABS: ALBUMIN 2.5 g/dl (3.4-5.0); BILIRUBIN,TOTAL 0.3 mg/dL (0.2-1); BLOOD UREA NITROGEN 7.3 mg/dL (7-18); CALCIUM 8.9 mg/dL (8.5-10.1); CREATININE 0.5 mg/dL (0.55-1.3); POTASSIUM 4.5 mmol/L (3.5-5.1); TOT PROT 5.9 g/dl (6.4-8.2)
[2019-04-14 08:37] LABS: PLATELET COUNT 536 K/MM3 (134-434)
[2019-04-14] MEDS: AZITHROMYCIN IVPB 500 MG/250 ML BAG IVPB SCH (09:29)
[2019-04-14] MEDS: ENOXAPARIN NA (PORCINE) 40 MG/0.4 ML DISP.SYRIN SQ SCH (09:29)
[2019-04-14] MEDS ORDERED: GLYCERIN 1 RECTAL SUPPOSITORY, ADULT PR PRN (12:09)
--- NOTE | 2019-04-14 13:05 | PN ---
Progress Note, Physician History of Present Illness: patient stable no new issues said she has had hemoptysis but feels better - Current Medication List Current Medications: Active Medications Acetaminophen (Ofirmev Injection -) 1,000 mg IVPB Q6H PRN PRN Reason: HEADACHE Last Admin: 04/10/19 21:46 Dose: 1,000 mg Albuterol/Ipratropium (Duoneb -) 1 amp NEB Q6H PRN PRN Reason: SHORTNESS OF BREATH Last Admin: 04/12/19 20:35 Dose: 1 amp Benzocaine/Menthol (Cepacol Lozenge -) 1 each MM PRN PRN PRN Reason: SORE THROAT Enoxaparin Sodium (Lovenox -) 40 mg SQ DAILY MARCELLA Last Admin: 04/14/19 09:29 Dose: Not Given Azithromycin (Zithromax 500mg Ivpb (Pre-Docked)) 500 mg in 250 mls @ 250 mls/ hr IVPB DAILY MARCELLA Last Admin: 04/14/19 09:29 Dose: 250 mls/hr Sodium Chloride (Normal Saline -) 1,000 mls @ 75 mls/hr IV ASDIR MARCELLA Last Admin: 04/14/19 06:06 Dose: 75 mls/hr Piperacillin Sod/Tazobactam (Sod 3.375 gm/ Dextrose) 50 mls @ 100 mls/hr IVPB Q8H-IV MARCELLA; Protocol Last Admin: 04/14/19 09:30 Dose: 100 mls/hr Ondansetron HCl (Zofran Injection) 4 mg IVPUSH Q6H PRN PRN Reason: NAUSEA - Objective Vital Signs: Vital Signs Temperature 98.4 F 04/14/19 09:34 Pulse Rate 84 04/14/19 09:34 Respiratory Rate 20 04/14/19 09:34 Blood Pressure 120/67 04/14/19 09:34 O2 Sat by Pulse Oximetry (%) 95 04/14/19 08:44 Constitutional: Yes: No Distress, Calm Cardiovascular: Yes: S1, S2 Respiratory: Yes: Regular, CTA Bilaterally Gastrointestinal: Yes: Normal Bowel Sounds, Soft Musculoskeletal: Yes: WNL Extremities: Yes: WNL Neurological: Yes: Alert, Oriented Psychiatric: Yes: Alert, Oriented Labs: CBC, BMP 04/14/19 07:00 04/14/19 07:00 INR, PTT INR 1.19 (0.83-1.09) H 04/09/19 11:00 Assessment/Plan pneumonia fever weakness plan continue current abx incentive keke rest as per the team sputum cx send will await for the results
--- NOTE | 2019-04-14 13:37 | PN ---
Progress Note (short form) - Note Progress Note: PULMONARY Continues to feel better but had streaky hemoptysis yesterday. None today. No fevers. Vital Signs Period Temp Pulse Resp BP Sys/Irwin Pulse Ox Last 24 Hr 97.7 F-98.7 F 69-84 20-20 115-122/67-80 95-95 Gen: less tachypneic Herat: RRR Lung: left base rales, no wheezes Abd: soft, nontender Ext: no edema CBC, BMP 04/14/19 07:00 04/14/19 07:00 Active Medications Acetaminophen (Ofirmev Injection -) 1,000 mg IVPB Q6H PRN PRN Reason: HEADACHE Last Admin: 04/10/19 21:46 Dose: 1,000 mg Albuterol/Ipratropium (Duoneb -) 1 amp NEB Q6H PRN PRN Reason: SHORTNESS OF BREATH Last Admin: 04/12/19 20:35 Dose: 1 amp Benzocaine/Menthol (Cepacol Lozenge -) 1 each MM PRN PRN PRN Reason: SORE THROAT Enoxaparin Sodium (Lovenox -) 40 mg SQ DAILY MARCELLA Last Admin: 04/14/19 09:29 Dose: Not Given Azithromycin (Zithromax 500mg Ivpb (Pre-Docked)) 500 mg in 250 mls @ 250 mls/ hr IVPB DAILY MARCELLA Last Admin: 04/14/19 09:29 Dose: 250 mls/hr Sodium Chloride (Normal Saline -) 1,000 mls @ 75 mls/hr IV ASDIR MARCELLA Last Admin: 04/14/19 06:06 Dose: 75 mls/hr Piperacillin Sod/Tazobactam (Sod 3.375 gm/ Dextrose) 50 mls @ 100 mls/hr IVPB Q8H-IV MARCELLA; Protocol Last Admin: 04/14/19 09:30 Dose: 100 mls/hr Ondansetron HCl (Zofran Injection) 4 mg IVPUSH Q6H PRN PRN Reason: NAUSEA A/P Multilobar Pneumonia likely Community Acquired Sepsis Hyponatremia improving Anemia - continue antibiotics per ID - f/u cultures - IVF - monitor lytes - inhaled bronchodilators - O2 to keep Spo2 >90% - encouraged ambulation - DVT prophylaxis - outpt f/u of chest imaging to ensure resolution of infiltrates
--- NOTE | 2019-04-14 16:39 | PN ---
Physical Exam: SUBJECTIVE: Patient seen and examined at bedside. Pt endorsed to having positive ppd and hemoptysis streaky a day ago with some night sweats and children who were dx and treated with Tb. OBJECTIVE: Vital Signs Period Temp Pulse Resp BP Sys/Irwin Pulse Ox Last 24 Hr 98.3 F-98.7 F 69-84 20-20 113-120/67-73 95-95 GENERAL: The patient is awake, alert, and fully oriented, in no acute distress. HEAD: Normal with no signs of trauma. NECK: Trachea midline, full range of motion, supple. LUNGS: Breath sounds reduced b/l, decreased wheezes, no crackles, no accessory muscle use. HEART: Regular rate and rhythm, S1, S2 without murmur, rub or gallop. ABDOMEN: Soft, nontender, nondistended, normoactive bowel sounds, no guarding, no rebound. EXTREMITIES: 2+ pulses, warm, well-perfused, no edema. NEUROLOGICAL: Cranial nerves II through XII grossly intact. Normal speech, gait not observed. PSYCH: Normal mood, normal affect. SKIN: Warm, dry, normal turgor, no rashes or lesions noted Laboratory Results - last 24 hr 04/12/19 04/13/19 04/14/19 06:20 15:45 07:00 WBC 3.2 L RBC 3.11 L Hgb 10.0 L Hct 29.5 L MCV 94.7 MCH 32.2 MCHC 34.0 RDW 12.3 Plt Count 536 H MPV 7.1 L Absolute Neuts (auto) 1.4 L Neutrophils % 44.4 Lymphocytes % 38.8 Monocytes % 9.5 Eosinophils % 5.8 H Basophils % 1.5 Nucleated RBC % 0 Sodium Potassium Chloride Carbon Dioxide Anion Gap BUN Creatinine Est GFR (CKD-EPI)AfAm Est GFR (CKD-EPI)NonAf Random Glucose Calcium Total Bilirubin AST ALT Alkaline Phosphatase Total Protein Albumin Procalcitonin 0.07 Influenza A (Rapid) Negative Influenza B (Rapid) Negative 04/14/19 07:00 WBC RBC Hgb Hct MCV MCH MCHC RDW Plt Count MPV Absolute Neuts (auto) Neutrophils % Lymphocytes % Monocytes % Eosinophils % Basophils % Nucleated RBC % Sodium 137 Potassium 4.5 Chloride 104 Carbon Dioxide 27 Anion Gap 6 L BUN 7.3 Creatinine 0.5 L Est GFR (CKD-EPI)AfAm 121.07 Est GFR (CKD-EPI)NonAf 104.46 Random Glucose 88 Calcium 8.9 Total Bilirubin 0.3 AST 54 H ALT 76 H Alkaline Phosphatase 76 Total Protein 5.9 L Albumin 2.5 L Procalcitonin Influenza A (Rapid) Influenza B (Rapid) Active Medications Generic Name Dose Route Start Last Admin Trade Name Freq PRN Reason Stop Dose Admin Acetaminophen 1,000 mg 04/10/19 20:55 04/10/19 21:46 Ofirmev Injection - IVPB 1,000 mg Q6H PRN Administration HEADACHE Albuterol/Ipratropium 1 amp 04/10/19 12:53 04/12/19 20:35 Duoneb - NEB 1 amp Q6H PRN Administration SHORTNESS OF BREATH Benzocaine/Menthol 1 each 04/10/19 07:33 Cepacol Lozenge - MM PRN PRN SORE THROAT Enoxaparin Sodium 40 mg 04/10/19 10:00 04/14/19 09:29 Lovenox - SQ Not Given DAILY MARCELLA Azithromycin 500 mg in 250 mls @ 250 mls/hr 04/10/19 10:00 04/14/19 09:29 Zithromax 500mg Ivpb (Pre-Docked) IVPB 250 mls/hr DAILY MARCELLA Administration Sodium Chloride 1,000 mls @ 75 mls/hr 04/10/19 13:45 04/14/19 06:06 Normal Saline - IV 75 mls/hr ASDIR MARCELLA Administration Piperacillin Sod/Tazobactam 50 mls @ 100 mls/hr 04/11/19 10:00 04/14/19 09:30 Sod 3.375 gm/ Dextrose IVPB 100 mls/hr Q8H-IV MARCELLA Administration Protocol Ondansetron HCl 4 mg 04/12/19 15:45 Zofran Injection IVPUSH Q6H PRN NAUSEA ASSESSMENT/PLAN: This is a 63 y/o woman with PMH of heart murmur,anemia, ? hepatitis, and genital herpes who presented with fever, cough, and SOB x 1 week. She was found to be septic. #Community acquired PNA b/l/ sepsis - continue zosyn (day 4) per Dr. Sousa , and ashli (day 5). - f/u B.C.'s and sputum gram stain (negative) and culture pending. No reason to do afb SPUTUM or quantifuron at this current juncture. Recommendations appreciated. - fluids continued 75 cc/hr. - IgM mycoplasma negative - HIV negative - continue incentive spirometry - Influenza negative - Strongyloides pending. - Stool O&P pending - Blood parasite exam negative - pt endorses traveling [place] 2000 and traveling to [place] 1 yr ago. - procalcitonin 0.07 - O2 as needed per NC. - CT results showed b/l PNA mostly in LLL, pleural effusions lt >rt. - repeat CT chest needed in 4-8 wks due to possible mass in lung. - continue trending wbc (neutropenia). Pulm - Dr. Wynn: keep SaO2 >90%, continue inhaled BD's, monitor lytes, continue IVF, F/U Cx's, recommends f/u o/p chest imaging for unresolving infiltrate. #Group III Pulm HTN - Echo- findings of TR suggests this is the cause of the JVD and pulm HTN (RV systolic pressure >25) - PNA is cause of HTN with some valvular involvement as well via the TR. - o/p PFT's, cardio followup. #Normocytic anemia - continue to monitor as outpatient. No management at this time. - slight bump in platelets like reactive to infection (457->536) FEN: - on fluids 75ml/hr NS - monitor all lytes - on regular diet Prophlyaxis: DVT lovenox 40g SQ. Dispo: stable on non-tele. Visit type - Emergency Visit Emergency Visit: No - New Patient This patient is new to me today: No - Critical Care Critical Care patient: No - Discharge Referral Referred to [facility] No ATTENDING PHYSICIAN STATEMENT I saw and evaluated the patient. I reviewed the resident's note and discussed the case with the resident. I agree with the resident's findings and plan as documented. SUBJECTIVE: OBJECTIVE: ASSESSMENT AND PLAN:
[2019-04-14] MEDS ORDERED: guaiFENesin/D-M SUGAR-FREE/ACLHOL-FREE 118 ML BOTTLE PO PRN (17:06)
--- NOTE | 2019-04-14 20:21 | PN ---
Teaching Attending Note Name of Resident: Saeid Parra ATTENDING PHYSICIAN STATEMENT I saw and evaluated the patient. I reviewed the resident's note and discussed the case with the resident. I agree with the resident's findings and plan as documented. SUBJECTIVE: Patient is comfortable with no acute distress, feels better , still mildly coughing. OBJECTIVE: Vital Signs Temperature 97.3 F L 04/14/19 18:31 Pulse Rate 77 04/14/19 18:31 Respiratory Rate 20 04/14/19 18:31 Blood Pressure 126/75 04/14/19 18:31 O2 Sat by Pulse Oximetry (%) 95 04/14/19 08:44 GENERAL: The patient is awake, alert, and fully oriented, in no acute distress. HEAD: Normal with no signs of trauma. EYES: PERRL, extraocular movements intact, sclera anicteric, conjunctiva clear. . ENT: Ears normal, oropharynx clear without exudates, moist mucous membranes. NECK: Trachea midline, full range of motion, supple. LUNGS: decreased Breath sounds Bl , left sided decreased air entery , no wheezes, no crackles, no accessory muscle use. HEART: Regular rate and rhythm, S1, S2 positive, celestino 2/6 , no rub or gallop. ABDOMEN: Soft, nontender, nondistended, normoactive bowel sounds, no guarding, no rebound, no hepatosplenomegaly, no masses. EXTREMITIES: 2+ pulses, warm, well-perfused, no edema. NEUROLOGICAL: Cranial nerves II through XII grossly intact. Normal speech, gait is stable. PSYCH: Normal mood, normal affect. SKIN: Warm, dry, normal turgor, no rashes or lesions noted CBCD WBC 3.2 K/mm3 (4.0-10.0) L 04/14/19 07:00 RBC 3.11 M/mm3 (3.60-5.2) L 04/14/19 07:00 Hgb 10.0 GM/dL (10.7-15.3) L 04/14/19 07:00 Hct 29.5 % (32.4-45.2) L 04/14/19 07:00 MCV 94.7 fl (80-96) 04/14/19 07:00 MCHC 34.0 g/dl (32.0-36.0) 04/14/19 07:00 RDW 12.3 % (11.6-15.6) 04/14/19 07:00 Plt Count 536 K/MM3 (134-434) H 04/14/19 07:00 MPV 7.1 fl (7.5-11.1) L 04/14/19 07:00 CMP Sodium 137 mmol/L (136-145) 04/14/19 07:00 Potassium 4.5 mmol/L (3.5-5.1) 04/14/19 07:00 Chloride 104 mmol/L (98-107) 04/14/19 07:00 Carbon Dioxide 27 mmol/L (21-32) 04/14/19 07:00 Anion Gap 6 MMOL/L (8-16) L 04/14/19 07:00 BUN 7.3 mg/dL (7-18) 04/14/19 07:00 Creatinine 0.5 mg/dL (0.55-1.3) L 04/14/19 07:00 Random Glucose 88 mg/dL (74-106) 04/14/19 07:00 Calcium 8.9 mg/dL (8.5-10.1) 04/14/19 07:00 Total Bilirubin 0.3 mg/dL (0.2-1) 04/14/19 07:00 AST 54 U/L (15-37) H 04/14/19 07:00 ALT 76 U/L (13-61) H 04/14/19 07:00 Alkaline Phosphatase 76 U/L (45-117) 04/14/19 07:00 Total Protein 5.9 g/dl (6.4-8.2) L 04/14/19 07:00 Albumin 2.5 g/dl (3.4-5.0) L 04/14/19 07:00 CARDIAC ENZYMES Troponin I < 0.02 ng/ml (0.00-0.05) 04/09/19 11:00 Current Medications Generic Name Dose Route Start Last Admin Trade Name Freq PRN Reason Stop Dose Admin Acetaminophen 1,000 mg 04/10/19 20:55 04/10/19 21:46 Ofirmev Injection - IVPB 1,000 mg Q6H PRN Administration HEADACHE Albuterol/Ipratropium 1 amp 04/10/19 12:53 04/12/19 20:35 Duoneb - NEB 1 amp Q6H PRN Administration SHORTNESS OF BREATH Benzocaine/Menthol 1 each 04/10/19 07:33 Cepacol Lozenge - MM PRN PRN SORE THROAT Enoxaparin Sodium 40 mg 04/10/19 10:00 04/14/19 09:29 Lovenox - SQ Not Given DAILY MARCELLA Guaifenesin 5 ml 04/14/19 17:06 Diabetic Tussin Dm - PO Q6H PRN COUGH Azithromycin 500 mg in 250 mls @ 250 mls/hr 04/10/19 10:00 04/14/19 09:29 Zithromax 500mg Ivpb (Pre-Docked) IVPB 250 mls/hr DAILY MARCELLA Administration Sodium Chloride 1,000 mls @ 75 mls/hr 04/10/19 13:45 04/14/19 13:50 Normal Saline - IV Not Given ASDIR MARCELLA Piperacillin Sod/Tazobactam 50 mls @ 100 mls/hr 04/11/19 10:00 04/14/19 17:16 Sod 3.375 gm/ Dextrose IVPB 100 mls/hr Q8H-IV MARCELLA Administration Protocol Ondansetron HCl 4 mg 04/12/19 15:45 Zofran Injection IVPUSH Q6H PRN NAUSEA CT chest: extensive bl pneumonia , most marked within LLL. associated pleural effusions, left greater than right. ASSESSMENT AND PLAN: Patient is a 63yo female with PMHx of heart murmur,anemia, and genital herpes who presented with fever, cough, and SOB x 1 week. she was found to septic # Sepsis due to having bl Pneumonia L>R continue IV antibiotic zosyn # BL CAP on Zpsyn continue # Hyponatremia improved post IVF # Normocytic anemia with thrombocytosis reactive # Elevated BNP :not in heart failure clinically. 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 patient notified ; follow up with repeat ECHO and CT of the chest once more stable. DVT px. lovenox
[2019-04-14] MEDS: ALBUTEROL SO4 2.5/IPRATROPIUM 0.5 INH SOL 3 ML VIAL.NEB. NEB PRN (20:30)
[2019-04-14] MEDS ORDERED: DOCUSATE SODIUM 100 MG CAPSULE (FP) PO SCH (22:00)
[2019-04-15] MEDS ORDERED: DEXTROSE 5%-WATER - 50 ML IVPB ONE ×2 (01:13→08:56)
[2019-04-15] MEDS ORDERED: PIPERACILLIN/TAZOBACTAM 3.375 GM VIAL IVPB ONE ×2 (01:13→08:56)
[2019-04-15] MEDS: PIPERACILLIN/TAZOB 3.375 GM 3.375 GM in DEXTROSE 5%-WATER - 50 ML IVPB SCH ×2 (01:42→09:13)
[2019-04-15] MEDS: SODIUM CHLORIDE 1,000 ML IV SCH ×2 (01:43→10:39)
[2019-04-15 06:45] VITALS: TEMP 97.3
[2019-04-15 07:43] LABS: ALBUMIN 2.7 g/dl (3.4-5.0); BILIRUBIN,TOTAL 0.4 mg/dL (0.2-1); BLOOD UREA NITROGEN 7.8 mg/dL (7-18); CREATININE 0.6 mg/dL (0.55-1.3); POTASSIUM 4.8 mmol/L (3.5-5.1); TOT PROT 6.2 g/dl (6.4-8.2)
[2019-04-15 08:40] LABS: BASO % 1.6 % (0-2.0); EOS % 4.5 % (0-4.5); HEMATOCRIT 30.3 % (32.4-45.2); HEMOGLOBIN 10.3 GM/dL (10.7-15.3); LYMPH % 41.1 % (8-40); MCHC 34.1 g/dl (32.0-36.0); MEAN PLT VOLUME 7.2 fl (7.5-11.1); MONO % 8.7 % (3.8-10.2); NEUT % 44.1 % (42.8-82.8); PLATELET COUNT 615 K/MM3 (134-434); RBC 3.22 M/mm3 (3.60-5.2); RDW 12.4 % (11.6-15.6); WHITE BLOOD COUNT 3.3 K/mm3 (4.0-10.0)
[2019-04-15] MEDS: ENOXAPARIN NA (PORCINE) 40 MG/0.4 ML DISP.SYRIN SQ SCH (09:12)
[2019-04-15 10:20] LABS: PLATELET ESTIMATE INCREASED
[2019-04-15] MEDS: AZITHROMYCIN IVPB 500 MG/250 ML BAG IVPB SCH (10:36)
--- NOTE | 2019-04-15 14:35 | PN ---
Progress Note, Physician History of Present Illness: Pt seen and examined, events noted. Pt states she is feeling much better, cough resolving, minimal amt blood streaked sputum, no SOB and reports ambulating without SOB. Wishes to go home. - Current Medication List Current Medications: Active Medications Acetaminophen (Ofirmev Injection -) 1,000 mg IVPB Q6H PRN PRN Reason: HEADACHE Last Admin: 04/10/19 21:46 Dose: 1,000 mg Benzocaine/Menthol (Cepacol Lozenge -) 1 each MM PRN PRN PRN Reason: SORE THROAT Enoxaparin Sodium (Lovenox -) 40 mg SQ DAILY MARCELLA Last Admin: 04/15/19 09:12 Dose: Not Given Guaifenesin (Diabetic Tussin Dm -) 5 ml PO Q6H PRN PRN Reason: COUGH Sodium Chloride (Normal Saline -) 1,000 mls @ 75 mls/hr IV ASDIR MARCELLA Last Admin: 04/15/19 10:39 Dose: 75 mls/hr Piperacillin Sod/Tazobactam (Sod 3.375 gm/ Dextrose) 50 mls @ 100 mls/hr IVPB Q8H-IV MARCELLA; Protocol Last Admin: 04/15/19 09:13 Dose: 100 mls/hr Ondansetron HCl (Zofran Injection) 4 mg IVPUSH Q6H PRN PRN Reason: NAUSEA - Objective Vital Signs: Vital Signs Temperature 97.3 F L 04/15/19 06:40 Pulse Rate 69 04/15/19 06:40 Respiratory Rate 20 04/15/19 06:40 Blood Pressure 106/65 04/15/19 06:40 O2 Sat by Pulse Oximetry (%) 97 04/15/19 09:00 Constitutional: Yes: No Distress, Calm Eyes: Yes: Conjunctiva Clear Cardiovascular: Yes: Regular Rate and Rhythm Respiratory: Yes: Wheezes Gastrointestinal: Yes: Normal Bowel Sounds, Soft Genitourinary: Yes: WNL Extremities: Yes: WNL Edema: No Integumentary: Yes: WNL Neurological: Yes: Alert, Oriented Labs: CBC, BMP 04/15/19 06:35 04/15/19 06:35 INR, PTT INR 1.19 (0.83-1.09) H 04/09/19 11:00 Microbiology 04/13/19 18:15 Sputum - Expectorated Gram Stain - Final 04/13/19 18:15 Sputum - Expectorated Sputum Culture - Preliminary NORMAL RESPIRATORY AMANDO 04/10/19 07:52 Blood - Peripheral Venous Blood Culture - Final NO GROWTH AFTER 5 DAYS INCUBATION 04/10/19 07:52 Blood - Peripheral Venous Blood Culture - Final NO GROWTH AFTER 5 DAYS INCUBATION 04/09/19 11:00 Blood - Peripheral Venous Blood Culture - Final NO GROWTH AFTER 5 DAYS INCUBATION 04/09/19 11:00 Blood - Peripheral Venous Blood Culture - Final NO GROWTH AFTER 5 DAYS INCUBATION 04/11/19 11:55 Serum Mycoplasma Antibody - Final 04/13/19 11:44 Blood - Peripheral Venous Blood Parasites Smear - Final 04/10/19 13:30 Urine For Antigen Detection Legionella Antigen - Final 04/10/19 13:30 Urine For Antigen Detection Streptococcus pneumoniae Antigen (M - Final 04/09/19 11:20 Urine - Urine Clean Catch Urine Culture - Final Lactose Fermenting Neg Bacilli - ....Imaging Cat Scan: Report Reviewed Problem List - Problems (1) Community acquired bacterial pneumonia Code(s): J15.9 - UNSPECIFIED BACTERIAL PNEUMONIA Assessment/Plan CAP s/p Sepsis -- clinically improving, afebrile -- if d/c pt home suggest Augmentin XR 2G po BID x 4 days, bronchodilators -- f/u with Dr. Sousa in one wk -- monitor cbc -- Pulmonary following -- repeat CT as outpt after d/c pt instructed to seek immediate medical attention if symptoms worsen, develops fever/abd pain/diarrhea
--- NOTE | 2019-04-15 15:10 | PN ---
Progress Note (short form) - Note Progress Note: Continues to feel better. Minimal dark hemoptysis this AM. No SOB. Intake & Output 04/12/19 04/13/19 04/14/19 04/15/19 23:59 23:59 23:59 23:59 Intake Total 2250 1440 3175 1475 Output Total 4300 2300 803 603 Balance -2049 2372 872 Last Vital Signs Temp Pulse Resp BP Pulse Ox 97.3 F L 69 20 106/65 97 04/15/19 06:40 04/15/19 06:40 04/15/19 06:40 04/15/19 06:40 04/15/19 09:00 Active Medications Acetaminophen (Ofirmev Injection -) 1,000 mg IVPB Q6H PRN PRN Reason: HEADACHE Last Admin: 04/10/19 21:46 Dose: 1,000 mg Benzocaine/Menthol (Cepacol Lozenge -) 1 each MM PRN PRN PRN Reason: SORE THROAT Enoxaparin Sodium (Lovenox -) 40 mg SQ DAILY MARCELLA Last Admin: 04/15/19 09:12 Dose: Not Given Guaifenesin (Diabetic Tussin Dm -) 5 ml PO Q6H PRN PRN Reason: COUGH Sodium Chloride (Normal Saline -) 1,000 mls @ 75 mls/hr IV ASDIR MARCELLA Last Admin: 04/15/19 10:39 Dose: 75 mls/hr Piperacillin Sod/Tazobactam (Sod 3.375 gm/ Dextrose) 50 mls @ 100 mls/hr IVPB Q8H-IV MARCELLA; Protocol Last Admin: 04/15/19 09:13 Dose: 100 mls/hr Ondansetron HCl (Zofran Injection) 4 mg IVPUSH Q6H PRN PRN Reason: NAUSEA Gen: less tachypneic Herat: RRR Lung: left base rales, no wheezes Abd: soft, nontender Ext: no edema Laboratory Results - last 24 hr 04/13/19 04/15/19 04/15/19 11:44 06:35 06:35 WBC 3.3 L RBC 3.22 L Hgb 10.3 L Hct 30.3 L MCV 94.0 MCH 32.0 MCHC 34.1 RDW 12.4 Plt Count 615 H MPV 7.2 L Absolute Neuts (auto) 1.5 Neutrophils % 44.1 Lymphocytes % 41.1 H Monocytes % 8.7 Eosinophils % 4.5 Basophils % 1.6 Nucleated RBC % 0 Platelet Estimate Increased Platelet Comment Sslide reviewed Sodium 138 Potassium 4.8 Chloride 105 Carbon Dioxide 29 Anion Gap 4 L BUN 7.8 Creatinine 0.6 Est GFR (CKD-EPI)AfAm 114.02 Est GFR (CKD-EPI)NonAf 98.38 Random Glucose 85 Calcium 9.0 Total Bilirubin 0.4 AST 55 H ALT 76 H Alkaline Phosphatase 78 Total Protein 6.2 L Albumin 2.7 L Strongyloides IgG Ab Negative A/P Multilobar Pneumonia likely Community Acquired Sepsis Hyponatremia improving Anemia Can change to PO ABX No smoking CT chest in May Dr Beasley
[2019-04-15 15:45] VITALS: BP 115/62; PULSE 62
--- NOTE | 2019-04-15 18:43 | PN ---
Teaching Attending Note Name of Resident: Saeid Parra ATTENDING PHYSICIAN STATEMENT I saw and evaluated the patient. I reviewed the resident's note and discussed the case with the resident. I agree with the resident's findings and plan as documented. SUBJECTIVE: Patient is feeling better with no acute distress, slight coughing this morning with mild hemoptysis. OBJECTIVE: Vital Signs Temperature 97.3 F L 04/15/19 15:00 Pulse Rate 62 04/15/19 15:00 Respiratory Rate 20 04/15/19 15:00 Blood Pressure 115/62 04/15/19 15:00 O2 Sat by Pulse Oximetry (%) 97 04/15/19 09:00 GENERAL: The patient is awake, alert, and fully oriented, in no acute distress. HEAD: Normal with no signs of trauma. EYES: PERRL, extraocular movements intact, sclera anicteric, conjunctiva clear. ENT: Ears normal, oropharynx clear without exudates, moist mucous membranes. NECK: Trachea midline, full range of motion, supple. LUNGS: decreased Breath sounds Bl , no wheezes, no crackles, no accessory muscle use. HEART: Regular rate and rhythm, S1, S2 positive, celestino 2/6 , no rub or gallop. ABDOMEN: Soft, NT,ND, normoactive bowel sounds, no guarding, no rebound, no hepatosplenomegaly, no masses. EXTREMITIES: 2+ pulses, warm, well-perfused, no edema. NEUROLOGICAL: Cranial nerves II through XII grossly intact. Normal speech, gait not observed. PSYCH: Normal mood, normal affect. SKIN: Warm, dry, normal turgor, no rashes or lesions noted CBCD WBC 3.3 K/mm3 (4.0-10.0) L 04/15/19 06:35 RBC 3.22 M/mm3 (3.60-5.2) L 04/15/19 06:35 Hgb 10.3 GM/dL (10.7-15.3) L 04/15/19 06:35 Hct 30.3 % (32.4-45.2) L 04/15/19 06:35 MCV 94.0 fl (80-96) 04/15/19 06:35 MCHC 34.1 g/dl (32.0-36.0) 04/15/19 06:35 RDW 12.4 % (11.6-15.6) 04/15/19 06:35 Plt Count 615 K/MM3 (134-434) H 04/15/19 06:35 MPV 7.2 fl (7.5-11.1) L 04/15/19 06:35 CMP Sodium 138 mmol/L (136-145) 04/15/19 06:35 Potassium 4.8 mmol/L (3.5-5.1) 04/15/19 06:35 Chloride 105 mmol/L (98-107) 04/15/19 06:35 Carbon Dioxide 29 mmol/L (21-32) 04/15/19 06:35 Anion Gap 4 MMOL/L (8-16) L 04/15/19 06:35 BUN 7.8 mg/dL (7-18) 04/15/19 06:35 Creatinine 0.6 mg/dL (0.55-1.3) 04/15/19 06:35 Random Glucose 85 mg/dL (74-106) 04/15/19 06:35 Calcium 9.0 mg/dL (8.5-10.1) 04/15/19 06:35 Total Bilirubin 0.4 mg/dL (0.2-1) 04/15/19 06:35 AST 55 U/L (15-37) H 04/15/19 06:35 ALT 76 U/L (13-61) H 04/15/19 06:35 Alkaline Phosphatase 78 U/L (45-117) 04/15/19 06:35 Total Protein 6.2 g/dl (6.4-8.2) L 04/15/19 06:35 Albumin 2.7 g/dl (3.4-5.0) L 04/15/19 06:35 CARDIAC ENZYMES Troponin I < 0.02 ng/ml (0.00-0.05) 04/09/19 11:00 Home Medications Medication Instructions Recorded Acidoph/L.bulg/Bif.b/S.thermop 1 each PO BID #60 tablet 04/15/19 [Bacid Caplet] Amoxicillin/Potassium Clav 4 each PO BID 4 Days #32 tablet 04/15/19 [Augmentin 500-125 Tablet] ASSESSMENT AND PLAN: Patient is a 63yo female with PMHx of heart murmur,anemia, and genital herpes who presented with fever, cough, and SOB x 1 week. she was found to septic CT chest: extensive bl pneumonia , most marked within LLL. associated pleural effusions, left greater than right. # Sepsis due to having bl Pneumonia L>R continue, as per ID and pulmonary patient can be discharged home on oral antibiotic 2gm of oral Augmentin bid and follow with her manager primary care on Thursday , also patient needs to repeat the CT of the chest in 6-8 weeks and follow up with pulmonary as well and ID within a a week period. # BL CAP ,s/p Zosyn , will discharge the patient home on Augmentin as per ID # Hyponatremia improved post IVF # Normocytic anemia with thrombocytosis reactive # Elevated BNP :not in heart failure clinically. 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 patient notified ; follow up with repeat ECHO once more stable and CT of the chest within 6-8 weeks once more stable. DVT px. lovenox
--- NOTE | 2019-04-15 18:51 | DS ---
Physical Exam: SUBJECTIVE: Patient seen and examined OBJECTIVE: Vital Signs Period Temp Pulse Resp BP Sys/Irwin Pulse Ox Last 24 Hr 97.3 F-98.1 F 62-90 20-20 106-128/62-75 95-97 PHYSICAL EXAM GENERAL: The patient is awake, alert, and fully oriented, in no acute distress. HEAD: Normal with no signs of trauma. EYES: PERRL, extraocular movements intact, sclera anicteric, conjunctiva clear. ENT: Ears normal, nares patent, oropharynx clear without exudates, moist mucous membranes. NECK: Trachea midline, full range of motion, supple. LUNGS: Breath sounds equal, clear to auscultation bilaterally, no wheezes, no crackles, no accessory muscle use. HEART: Regular rate and rhythm, S1, S2 without murmur, rub or gallop. ABDOMEN: Soft, nontender, nondistended, normoactive bowel sounds, no guarding, no rebound, no hepatosplenomegaly, no masses. EXTREMITIES: 2+ pulses, warm, well-perfused, no edema. NEUROLOGICAL: Cranial nerves II through XII grossly intact. Normal speech, gait not observed. PSYCH: Normal mood, normal affect. SKIN: Warm, dry, normal turgor, no rashes or lesions noted. LABS Laboratory Results - last 24 hr 04/13/19 04/15/19 04/15/19 11:44 06:35 06:35 WBC 3.3 L RBC 3.22 L Hgb 10.3 L Hct 30.3 L MCV 94.0 MCH 32.0 MCHC 34.1 RDW 12.4 Plt Count 615 H MPV 7.2 L Absolute Neuts (auto) 1.5 Neutrophils % 44.1 Lymphocytes % 41.1 H Monocytes % 8.7 Eosinophils % 4.5 Basophils % 1.6 Nucleated RBC % 0 Platelet Estimate Increased Platelet Comment Sslide reviewed Sodium 138 Potassium 4.8 Chloride 105 Carbon Dioxide 29 Anion Gap 4 L BUN 7.8 Creatinine 0.6 Est GFR (CKD-EPI)AfAm 114.02 Est GFR (CKD-EPI)NonAf 98.38 Random Glucose 85 Calcium 9.0 Total Bilirubin 0.4 AST 55 H ALT 76 H Alkaline Phosphatase 78 Total Protein 6.2 L Albumin 2.7 L Strongyloides IgG Ab Negative Microbiology 04/13/19 18:15 Sputum - Expectorated Gram Stain - Final 04/13/19 18:15 Sputum - Expectorated Sputum Culture - Preliminary NORMAL RESPIRATORY AMANDO 04/10/19 07:52 Blood - Peripheral Venous Blood Culture - Final NO GROWTH AFTER 5 DAYS INCUBATION 04/10/19 07:52 Blood - Peripheral Venous Blood Culture - Final NO GROWTH AFTER 5 DAYS INCUBATION 04/09/19 11:00 Blood - Peripheral Venous Blood Culture - Final NO GROWTH AFTER 5 DAYS INCUBATION 04/09/19 11:00 Blood - Peripheral Venous Blood Culture - Final NO GROWTH AFTER 5 DAYS INCUBATION 04/11/19 11:55 Serum Mycoplasma Antibody - Final 04/13/19 11:44 Blood - Peripheral Venous Blood Parasites Smear - Final 04/10/19 13:30 Urine For Antigen Detection Legionella Antigen - Final 04/10/19 13:30 Urine For Antigen Detection Streptococcus pneumoniae Antigen (M - Final 04/09/19 11:20 Urine - Urine Clean Catch Urine Culture - Final Lactose Fermenting Neg Bacilli HOSPITAL COURSE: Date of Admission:04/09/19 Images: CT: Extensive bilateral pneumonia, most marked within the left lower lobe. There are associated pleural effusions, left greater than right. Clinical correlation and follow-up recommended. CXR: Extensive bilateral lobar pneumonia, clinical correlation. Echo: Findings of TR suggests this is the cause of the JVD and pulm HTN (RV systolic pressure >25) This is a 63 y/o F with no PMH that was admitted for b/l PNA and nonexudative cough. She was placed on zosyn and azithromycin for 5 days and patient improved. She had a recent rise in her platelets so most likely reactive thrombocytosis but pt was asked to f/u with her PCP in 1 week to have a repeat cbc. 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 Patient is continuing management with augmentin 2g BID for 4 days starting 04/16. Date of Discharge: 04/15/19 Minutes to complete discharge: 35 Discharge Summary Reason For Visit: COMMUNITY ACQUIRED BACTERIAL PNEUMONIA Condition: Stable - Instructions Diet, Activity, Other Instructions: - You were admitted for having a lung infection; Pneumonia. We treated the infection with antibiotics. While you were here we found one of your blood levels to be high (platelets) so please have your primary care doctor repeat your blood work (cbc) when you see your Primary care doctor. Medication to complete treatment of your pneumonia: Augmentin XR 2gram by mouth twice daily for 4 days. Take Bacid 2x per day. - We did various imaging (chest CT and chest xray) while you were here. - As per your lung doctor (Dr. Rich) you are to repeat your chest CT scan in 6- 8 weeks. - You should follow up with your primary care doctor in a week. - Please follow up with your infectious disease doctor (Dr. Sousa ) in 1 week. - Return to the emergency room if you have worsening of your symptoms: fever, cough, chest pain, coughing up blood, or shortness of breath. Referrals: Caitlin Sousa MD [Staff Physician] - 1 Week Akin Rich MD [Staff Physician] - 1 Week Jenny Castaneda MD [Primary Care Provider] - 04/18/19 Disposition: HOME - Home Medications Comprehensive Discharge Medication List: Ambulatory Orders Acidoph/L.bulg/Bif.b/S.thermop [Bacid Caplet] 1 each PO BID #60 tablet 04/15/19 Amoxicillin/Potassium Clav [Augmentin 500-125 Tablet] 4 each PO BID 4 Days #32 tablet 04/15/19 This patient is new to me today: No Emergency Visit: No Critical Care patient: No - Discharge Referral Referred to [facility] No ATTENDING PHYSICIAN STATEMENT I saw and evaluated the patient. I reviewed the resident's note and discussed the case with the resident. I agree with the resident's findings and plan as documented. SUBJECTIVE: OBJECTIVE: ASSESSMENT AND PLAN:
== END 2019-04-15 17:20 | disposition home or self-care (01) | DRG 871 ==
LOC: JER 09:52 → JERBED 13:10 → J8W 15:04
PROVIDERS: ADMIT Internal Medicine; ATTEND Internal Medicine
DX: A41.9 Sepsis, unspecified organism (principal); J18.9 Pneumonia, unspecified organism; J98.11 Atelectasis; E87.1 Hypo-osmolality and hyponatremia; J90 Pleural effusion, not elsewhere classified; R50.9 Fever, unspecified; A60.04 Herpesviral vulvovaginitis; R01.1 Cardiac murmur, unspecified; D72.829 Elevated white blood cell count, unspecified; R00.0 Tachycardia, unspecified; D64.9 Anemia, unspecified; E86.1 Hypovolemia; R11.10 Vomiting, unspecified; I27.20 Pulmonary hypertension, unspecified; I08.1 Rheumatic disorders of both mitral and tricuspid valves; D47.3 Essential (hemorrhagic) thrombocythemia; Z87.891 Personal history of nicotine dependence
CPT/HCPCS: 36415; 71045-TC-FY; 71250-TC; 80048; 80053; 81003; 82308; 82565; 82607; 82728; 82746; 83540; 83550; 83605; 83735; 83880; 83930; 83935; 84100; 84300; 84443; 84484; 85025; 85610; 85730; 86615; 86682; 86738; 87040; 87070; 87086; 87177; 87205; 87207; 87209; 87389; 87804; 87899; 93005; 93010; 93306-TC; 94010; 94640; 99282-25; J0131; J7030

== ENCOUNTER 2020-11-22 04:49 | Day surgery (SDC) | payer OTHER ==
[2020-11-21 13:44] VITALS: BMI 20.9
[2020-11-22 12:09] VITALS: BP 120/85; PULSE 66
[2020-11-22 17:06] VITALS: TEMP 97.5
== END 2020-11-22 12:25 | disposition home or self-care (01) ==
LOC: JASU-ENDO 04:49
PROVIDERS: ATTEND Internal Medicine Gastroenterology
PROC: 0DJD8ZZ Inspection of Lower Intestinal Tract, Via Natural or Artificial Opening Endoscopic (ICD-10-PCS; principal; 2020-11-22 11:00)
DX: Z12.11 Encounter for screening for malignant neoplasm of colon (principal); Z80.0 Family history of malignant neoplasm of digestive organs; K64.8 Other hemorrhoids